=== PATIENT | female | born 1940 | race Caucasian/White ===

== ENCOUNTER 2017-05-20 15:30 | Emergency (ER) | payer MEDICARE, OTHER ==
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
== END 2017-05-20 16:43 | disposition home or self-care (01) ==
LOC: MW.ED 15:30
DX: S10.93XA Contusion of unspecified part of neck, initial encounter (principal); Z88.5 Allergy status to narcotic agent; Z91.018 Allergy to other foods; Z88.1 Allergy status to other antibiotic agents; V89.2XXA Person injured in unspecified motor-vehicle accident, traffic, initial encounter
CPT/HCPCS: 70450; 70450-26; 71046; 71046-26; 72125; 72125-26; 99284-25

== ENCOUNTER 2018-10-12 13:46 | Observation (INO) | payer MEDICARE, OTHER ==
--- NOTE | 2018-10-12 13:54 | EDM.PDOC ---
ED HPI GENERAL MEDICAL PROBLEM - General Chief Complaint: Respiratory Problem Stated Complaint: FLU Time Seen by Provider: 10/12/18 13:47 Source of Information: Reports: Patient History Limitations: Reports: No Limitations - History of Present Illness INITIAL COMMENTS - FREE TEXT/NARRATIVE: HISTORY AND PHYSICAL: History of present illness: Patient is a 78-year-old female presents to the ED today from [facility] for concern of pneumonia and elevated renal function testing. Patient states she had an appointment this morning and had lab work done and was called from the clinic to come to the ED. Patient states over the past couple weeks she's had an increasing cough and off-and-on fevers. Patient states she did not have a fever today but did have one yesterday of about 101. Patient states she's also felt more tired lately like she is out of energy. Patient denies any other symptoms or concerns. Patient has a history of hypertension, hyperlipidemia, and diabetes. Patient denies chills, chest pain, shortness of breath. Denies headache, neck stiff ness, change in vision, syncope, or near syncope. Denies nausea, vomiting , abdominal pain, diarrhea, constipation, or dysuria. Has not noted any blood in urine or stool. Patient has been eating and drinking appropriately. Review of systems: As per history of present illness and below otherwise all systems reviewed and negative. Past medical history: As per history of present illness and as reviewed below otherwise noncontributory. Surgical history: As per history of present illness and as reviewed below otherwise noncontributory. Social history: See social history for further information Family history: As per history of present illness and as reviewed below otherwise noncontributory. Physical exam: General: Patient is alert, oriented, and in no acute distress. Patient laying comfortably on exam table. HEENT: Atraumatic, normocephalic, pupils equal and reactive bilaterally, negative for conjunctival pallor or scleral icterus, mucous membranes moist, TMs normal bilaterally, throat clear, neck supple, nontender, trachea midline. No drooling or trismus noted. No meningeal signs. No hot potato voice noted. Lungs: Course crackles throughout the right lung field and wheezing of the left to auscultation, breath sounds equal bilaterally, chest nontender. Heart: S1S2, regular rate and rhythm without overt murmur Abdomen: Soft, nondistended, nontender. Negative for masses or hepatosplenomegaly. Negative for costovertebral tenderness. Pelvis: Stable nontender. Genitourinary: Deferred. Rectal: Deferred. Skin: Intact, warm, dry. No lesions or rashes noted. Extremities: Atraumatic, negative for cords or calf pain. Neurovascular unremarkable. Neuro: Awake, alert, oriented. Cranial nerves II through XII unremarkable. Cerebellum unremarkable. Motor and sensory unremarkable throughout. Exam nonfocal. Notes: Dr. Steinberg was consulted on patient and will admit to observation. Voices understanding and is agreeable to plan of care. Denies any further questions or concerns at this time. Diagnostics: CBC, CMP, UA, EKG, chest x-ray, lactate, blood cultures x 2 Therapeutics: Levofloxacin, NS Impression: Right middle lung pneumonia Elevated renal function tests Plan: 1. Admit to observation to Dr. Steinberg. Definitive disposition and diagnosis as appropriate pending reevaluation and review of above. - Related Data Allergies Allergy/AdvReac Type Severity Reaction Status Date / Time cephalexin [From Keflex] Allergy Rash Verified 10/12/18 13:52 codeine Allergy Respiratory Verified 10/12/18 13:52 Distress strawberry Allergy Rash Verified 10/12/18 13:52 Home Meds: Home Meds Gemfibrozil 600 mg PO BID 05/20/17 [History] Lisinopril 20 mg PO DAILY 05/20/17 [History] RX: LORazepam 1 mg PO ASDIRECTED 05/20/17 [History] RX: Pantoprazole [ProTONIX] 40 mg PO DAILY 05/20/17 [History] RX: Sertraline [Zoloft] 50 mg PO DAILY 05/20/17 [History] RX: atorvaSTATin [Lipitor] 10 mg PO DAILY 05/20/17 [History] SitaGLIPtin [Januvia] 50 mg PO DAILY 05/20/17 [History] Triamterene/Hydrochlorothiazid [Triamterene-HCTZ 37.5-25 MG] 1 tab PO DAILY [History] Past Medical History Cardiovascular History: Reports: Hypertension Other Musculoskeletal History: L shoulder and back pain chronic Psychiatric History: Reports: Anxiety, Depression Social & Family History - Family History Family Medical History: Noncontributory - Caffeine Use Caffeine Use: Reports: None ED ROS GENERAL - Review of Systems Review Of Systems: ROS reveals no pertinent complaints other than HPI. ED EXAM, GENERAL - Physical Exam Exam: See Below (See dictation) Course - Vital Signs Last Recorded V/S: Last Vital Signs Temp 35.3 C 10/12/18 13:54 Pulse 76 10/12/18 13:54 Resp 22 H 10/12/18 13:54 BP 111/34 L 10/12/18 13:54 Pulse Ox - Orders/Labs/Meds Orders: Active Orders 24 hr Category Date Time Status Admission Status [Patient Status] [ADT] Stat ADT 10/12/18 15:21 Ordered EKG Documentation Completion [RC] STAT Care 10/12/18 13:47 Active RT Aerosol Therapy [RC] ASDIRECTED Care 10/12/18 14:08 Active Chest 2V [CR] Stat Exams 10/12/18 13:47 Taken CULTURE BLOOD [BC] Stat Lab 10/12/18 14:00 Received CULTURE BLOOD [BC] Stat Lab 10/12/18 14:10 Received UA RFX ARLEY AND CULT IF INDIC [URIN] Stat Lab 10/12/18 13:47 Ordered Blood Culture x2 Reflex Set [OM.PC] Stat Oth 10/12/18 14:01 Ordered Labs: Laboratory Tests 10/12/18 10/12/18 10/12/18 Range/Units 14:00 14:00 14:00 WBC 16.45 H (4.0-11.0) K/uL RBC 3.55 L (4.30-5.90) M/uL Hgb 11.6 L (12.0-16.0) g/dL Hct 33.6 L (36.0-46.0) % MCV 94.6 (80.0-98.0) fL MCH 32.7 H (27.0-32.0) pg MCHC 34.5 (31.0-37.0) g/dL RDW Std Deviation 45.5 (28.0-62.0) fl RDW Coeff of Jacob 13 (11.0-15.0) % Plt Count 351 (150-400) K/uL MPV 10.00 (7.40-12.00) fL Neut % (Auto) 83.1 H (48.0-80.0) % Lymph % (Auto) 7.3 L (16.0-40.0) % [place] % (Auto) 9.4 (0.0-15.0) % Eos % (Auto) 0.1 (0.0-7.0) % Baso % (Auto) 0.1 (0.0-1.5) % Neut # (Auto) 13.7 H (1.4-5.7) K/uL Lymph # (Auto) 1.2 (0.6-2.4) K/uL [place] # (Auto) 1.5 H (0.0-0.8) K/uL Eos # (Auto) 0.0 (0.0-0.7) K/uL Baso # (Auto) 0.0 (0.0-0.1) K/uL Nucleated RBC % 0.0 /100WBC Nucleated RBCs # 0 K/uL Lactate 1.8 (0.20-2.00) mmol/L Sodium 137 (136-145) mmol/L Potassium 3.5 (3.5-5.1) mmol/L Chloride 99 (98-107) mmol/L Carbon Dioxide 21.2 (21.0-32.0) mmol/L BUN 56 H (7.0-18.0) mg/dL Creatinine 3.1 H (0.6-1.0) mg/dL Est Cr Clr Drug Dosing 14.23 mL/min Estimated GFR (MDRD) 14.6 ml/min Glucose 136 H (74-106) mg/dL Calcium 10.0 (8.5-10.1) mg/dL Total Bilirubin 0.5 (0.2-1.0) mg/dL AST 47 H (15-37) IU/L ALT 62 (14-63) IU/L Alkaline Phosphatase 109 (46-116) U/L Total Protein 8.9 H (6.4-8.2) g/dL Albumin 3.0 L (3.4-5.0) g/dL Globulin 5.9 H (2.6-4.0) g/dL Albumin/Globulin Ratio 0.5 L (0.9-1.6) Meds: Medications Discontinued Medications Generic Name Dose Route Start Last Admin Trade Name Freq PRN Reason Stop Dose Admin Albuterol/Ipratropium 3 ml 10/12/18 14:08 10/12/18 14:14 Duoneb 3.0-0.5 Mg/3 Ml NEB 10/12/18 14:09 3 ml ONETIME ONE Administration Sodium Chloride 1,000 mls @ 999 mls/hr 10/12/18 14:01 10/12/18 14:17 Normal Saline IV 10/12/18 15:01 999 mls/hr STAT ONE Administration Levofloxacin/Dextrose 500 mg/ 100 mls @ 100 mls/hr 10/12/18 14:06 10/12/18 14 :17 Premix IV 10/12/18 15:05 100 mls/hr ONETIME ONE Administration Departure - Departure Time of Disposition: 15:22 Disposition: Refer to Observation Clinical Impression: Community acquired pneumonia of right middle lobe of lung, Renal function test abnormal - Discharge Information - My Orders Last 24 Hours: My Active Orders 10/12/18 13:47 EKG Documentation Completion [RC] STAT Chest 2V [CR] Stat UA RFX ARLEY AND CULT IF INDIC [URIN] Stat 10/12/18 14:00 CULTURE BLOOD [BC] Stat 10/12/18 14:01 Blood Culture x2 Reflex Set [OM.PC] Stat 10/12/18 14:08 RT Aerosol Therapy [RC] ASDIRECTED 10/12/18 14:10 CULTURE BLOOD [BC] Stat 10/12/18 15:21 Admission Status [Patient Status] [ADT] Stat - Assessment/Plan Last 24 Hours: My Active Orders 10/12/18 13:47 EKG Documentation Completion [RC] STAT Chest 2V [CR] Stat UA RFX ARLEY AND CULT IF INDIC [URIN] Stat 10/12/18 14:00 CULTURE BLOOD [BC] Stat 10/12/18 14:01 Blood Culture x2 Reflex Set [OM.PC] Stat 10/12/18 14:08 RT Aerosol Therapy [RC] ASDIRECTED 10/12/18 14:10 CULTURE BLOOD [BC] Stat 10/12/18 15:21 Admission Status [Patient Status] [ADT] Stat
[2018-10-12] MEDS ORDERED: Sodium Chloride 0.9% 1,000 ML IV ONE (14:01)
[2018-10-12] MEDS ORDERED: Levofloxacin/Dextrose 5%-Water 500 MG in Premix Bag 1 BAG IV ONE (14:06)
[2018-10-12] MEDS ORDERED: Albuterol/Ipratropium 3.0-0.5 MG/3 ML Neb Soln NEB ONE (14:08)
[2018-10-12] MEDS ORDERED: Ondansetron 4 MG Tab.DIS PO PRN (15:48)
[2018-10-12] MEDS ORDERED: Acetaminophen 325 MG Tab PO PRN (15:48)
[2018-10-12] MEDS ORDERED: Ondansetron 4 MG/2 ML SDV IVPUSH PRN (15:48)
[2018-10-12] MEDS ORDERED: Albuterol 0.083% 2.5 MG/3 ML Neb Soln NEB PRN (15:48)
--- NOTE | 2018-10-12 16:16 | PCM.HP.2 ---
<Ronn Das - Last Filed: 10/12/18 16:20> H&P History of Present Illness - General Date of Service: 10/12/18 Admit Problem/Dx: Admission Diagnosis/Problem Admission Diagnosis/Problem Pneumonia - History of Present Illness Initial Comments - Free Text/Narative: 78 y/o female with history of type 2 diabetes who presented to the ER directly from her PCP's clinic. According to the patient, she had gone to see her PCP and were getting lab work done when she was told that she needed to come to the ER. She has been endorsing a productive cough for the past 1 week. some generalized weakness. Poor appetite due to not feeling well and some diarrhea for which she has been using Imodium. Endorses subjective fevers. No chills. No vomiting, abdominal pain, dysuria, blood in stool. No other sick contacts at home. She lives by herself and takes cares of herself. Can ambulate without assistance. Does not use supplemental oxygen at home. In the ER, chest xray showed a right middle lobe pneumonia and acute kidney injury. Receive bolus of NS x1 and one dose of levaquin. Currently on 2 L O2 satting in mid 90's. No acute distress. - Related Data Allergies/Adverse Reactions: Allergies Allergy/AdvReac Type Severity Reaction Status Date / Time cephalexin [From Keflex] Allergy Rash Verified 10/12/18 17:10 codeine Allergy Respiratory Verified 10/12/18 17:10 Distress strawberry Allergy Rash Verified 10/12/18 17:10 Home Medications: Home Meds Gemfibrozil 600 mg PO BID 05/20/17 [History] Lisinopril 20 mg PO DAILY 05/20/17 [History] Pantoprazole [ProTONIX] 40 mg PO DAILY 05/20/17 [History] Sertraline [Zoloft] 50 mg PO DAILY 05/20/17 [History] SitaGLIPtin [Januvia] 50 mg PO DAILY 05/20/17 [History] Triamterene/Hydrochlorothiazid [Triamterene-HCTZ 37.5-25 MG] 1 tab PO DAILY [History] atorvaSTATin [Lipitor] 10 mg PO BEDTIME 05/20/17 [History] Albuterol [Ventolin HFA] 1 puff INH QID PRN 10/12/18 [History] Blood-Glucose Control, Low [True Metrix] 1 each MC BID 10/12/18 [History] Estradiol [Estrace Vaginal] 1 applic VAG ASDIRECTED 10/12/18 [History] Lancets 1 each MC BID 10/12/18 [History] Past Medical History HEENT History: Reports: Impaired Vision Cardiovascular History: Reports: Hypertension Respiratory History: Reports: None Gastrointestinal History: Reports: None Genitourinary History: Reports: Renal Calculus TELEPHONE SERVICE REPRESENTATIVE History: Reports: None Musculoskeletal History: Reports: Arthritis, Other (See Below) Other Musculoskeletal History: L shoulder and back pain chronic Neurological History: Reports: None Psychiatric History: Reports: Anxiety, Depression Endocrine/Metabolic History: Reports: None Hematologic History: Reports: None Immunologic History: Reports: None Oncologic (Cancer) History: Reports: None Dermatologic History: Reports: None - Infectious Disease History Infectious Disease History: Reports: Hepatitis C, Measles, Mumps - Past Surgical History Head Surgeries/Procedures: Reports: None HEENT Surgical History: Reports: Tonsillectomy Cardiovascular Surgical History: Reports: None Respiratory Surgical History: Reports: None GI Surgical History: Reports: None Female Surgical History: Reports: Hysterectomy, Kidney stone extraction Endocrine Surgical History: Reports: None Neurological Surgical History: Reports: None Musculoskeletal Surgical History: Reports: None Oncologic Surgical History: Reports: None Dermatological Surgical History: Reports: None Social & Family History - Family History Family Medical History: Noncontributory - Tobacco Use Smoking Status *Q: Former Smoker Used Tobacco, but Quit: Yes Month/Year Tobacco Last Used: 2001 - Caffeine Use Caffeine Use: Reports: None - Recreational Drug Use Recreational Drug Use: No H&P Review of Systems - Review of Systems: Review Of Systems: ROS reveals no pertinent complaints other than HPI. Exam - Exam Exam: See Below - Vital Signs Vital Signs: Last Vital Signs Temp 35.9 C 10/12/18 15:41 Pulse 66 10/12/18 15:41 Resp 16 10/12/18 15:41 BP 112/46 L 10/12/18 15:41 Pulse Ox 97 10/12/18 15:41 Weight: 100.698 kg - Exam Quality Assessment: Supplemental Oxygen General: Alert, Oriented, Cooperative HEENT: Other (dry oral mucosa) Lungs: Other (lung sounds bilaterally with expiratory wheezing bilaterally. In addition, crackles on right lung field.) Cardiovascular: Regular Rate, Regular Rhythm GI/Abdominal Exam: Normal Bowel Sounds, Soft, Non-Tender, No Distention Extremities: Normal Inspection, No Pedal Edema Skin: Warm, Dry Neuro Extensive - Mental Status: Alert, Oriented x3 - Patient Data Lab Results Last 24 hrs: Laboratory Results - last 24 hr 10/12/18 10/12/18 10/12/18 Range/Units 14:00 14:00 14:00 WBC 16.45 H (4.0-11.0) K/uL RBC 3.55 L (4.30-5.90) M/uL Hgb 11.6 L (12.0-16.0) g/dL Hct 33.6 L (36.0-46.0) % MCV 94.6 (80.0-98.0) fL MCH 32.7 H (27.0-32.0) pg MCHC 34.5 (31.0-37.0) g/dL RDW Std Deviation 45.5 (28.0-62.0) fl RDW Coeff of Jacob 13 (11.0-15.0) % Plt Count 351 (150-400) K/uL MPV 10.00 (7.40-12.00) fL Neut % (Auto) 83.1 H (48.0-80.0) % Lymph % (Auto) 7.3 L (16.0-40.0) % [place] % (Auto) 9.4 (0.0-15.0) % Eos % (Auto) 0.1 (0.0-7.0) % Baso % (Auto) 0.1 (0.0-1.5) % Neut # (Auto) 13.7 H (1.4-5.7) K/uL Lymph # (Auto) 1.2 (0.6-2.4) K/uL [place] # (Auto) 1.5 H (0.0-0.8) K/uL Eos # (Auto) 0.0 (0.0-0.7) K/uL Baso # (Auto) 0.0 (0.0-0.1) K/uL Nucleated RBC % 0.0 /100WBC Nucleated RBCs # 0 K/uL Lactate 1.8 (0.20-2.00) mmol/L Sodium 137 (136-145) mmol/L Potassium 3.5 (3.5-5.1) mmol/L Chloride 99 (98-107) mmol/L Carbon Dioxide 21.2 (21.0-32.0) mmol/L BUN 56 H (7.0-18.0) mg/dL Creatinine 3.1 H (0.6-1.0) mg/dL Est Cr Clr Drug Dosing 14.23 mL/min Estimated GFR (MDRD) 14.6 ml/min Glucose 136 H (74-106) mg/dL Calcium 10.0 (8.5-10.1) mg/dL Total Bilirubin 0.5 (0.2-1.0) mg/dL AST 47 H (15-37) IU/L ALT 62 (14-63) IU/L Alkaline Phosphatase 109 (46-116) U/L Total Protein 8.9 H (6.4-8.2) g/dL Albumin 3.0 L (3.4-5.0) g/dL Globulin 5.9 H (2.6-4.0) g/dL Albumin/Globulin Ratio 0.5 L (0.9-1.6) Result Diagrams: 10/12/18 14:00 10/12/18 14:00 Problem List Initiated/Reviewed/Updated: Yes Orders Last 24hrs: Active Orders 24 hr Category Date Time Status Admission Status [Patient Status] [ADT] Stat ADT 10/12/18 15:21 Active Blood Glucose Check, Bedside [RC] WITHMEALSANDBED Care 10/12/18 15:48 Active EKG Documentation Completion [RC] STAT Care 10/12/18 13:47 Active Intake and Output [RC] QSHIFT Care 10/12/18 15:48 Active Oxygen Therapy [RC] PRN Care 10/12/18 15:48 Active Pulse Oximetry [RC] CONTINUOUS Care 10/12/18 15:48 Active RT Aerosol Therapy [RC] ASDIRECTED Care 10/12/18 14:08 Active RT Aerosol Therapy [RC] ASDIRECTED Care 10/12/18 15:50 Active Up ad Olga [RC] ASDIRECTED Care 10/12/18 15:48 Active VTE/DVT Education [RC] PER UNIT ROUTINE Care 10/12/18 15:48 Active Vital Signs [RC] Q4H Care 10/12/18 15:48 Active [employer] Diet [DIET] Diet 10/12/18 Dinner Active Chest 2V [CR] Stat Exams 10/12/18 13:47 Taken CULTURE BLOOD [BC] Stat Lab 10/12/18 14:00 Received CULTURE BLOOD [BC] Stat Lab 10/12/18 14:10 Received UA RFX ARLEY AND CULT IF INDIC [URIN] Stat Lab 10/12/18 13:47 Ordered Acetaminophen [Tylenol] Med 10/12/18 15:48 Active 650 mg PO Q4H PRN Albuterol [Proventil Neb Soln] Med 10/12/18 15:48 Active 2.5 mg NEB Q2H PRN Enoxaparin [Lovenox] Med 10/12/18 16:00 Active 40 mg SUBCUT Q24H Ondansetron [Zofran ODT] Med 10/12/18 15:48 Active 4 mg PO Q4H PRN Ondansetron [Zofran] Med 10/12/18 15:48 Active 4 mg IVPUSH Q4H PRN Blood Culture x2 Reflex Set [OM.PC] Stat Oth 10/12/18 14:01 Ordered Resuscitation Status Routine Resus Stat 10/12/18 15:48 Ordered Medication Orders Acetaminophen (Tylenol) 650 mg PO Q4H PRN PRN Reason: Pain (Mild 1-3)/fever Albuterol (Proventil Neb Soln) 2.5 mg NEB Q2H PRN PRN Reason: Shortness Of Breath/wheezing Enoxaparin Sodium (Lovenox) 40 mg SUBCUT Q24H LINDA Ondansetron HCl (Zofran Odt) 4 mg PO Q4H PRN PRN Reason: nausea, able to take PO Ondansetron HCl (Zofran) 4 mg IVPUSH Q4H PRN PRN Reason: Nausea Assessment/Plan Comment:: A: 1. Community acquired pneumonia 2. Leukocytosis due to above 3. Acute kidney injury 4. PMH diabetes type 2, dyslipidemia P: 1. Will treat for CAP with Levaquin IV Q48h for now due to her SAULO. Will make changes accordingly. Titrate O2 with goal >90%. Albuterol nebs PRN for wheezing. Will give maintenance fluids NS IV at 125 ml/hr for now and recheck kidney function tomorrow morning. Will order ISS for now. dispo: 1-2 days. <Cortez Steinberg - Last Filed: 10/12/18 17:41> H&P History of Present Illness - General Admit Problem/Dx: Admission Diagnosis/Problem Admission Diagnosis/Problem Pneumonia I have examined the patient independently of biomedical technician, Dr. Maria Teresa MD. I have discussed the case with him. I have reviewed and agree with the examination and plan as outlined by him. Please see orders. Exam - Vital Signs Vital Signs: Last Vital Signs Temp 35.9 C 10/12/18 15:41 Pulse 66 10/12/18 15:41 Resp 16 10/12/18 15:41 BP 112/46 L 10/12/18 15:41 Pulse Ox 97 10/12/18 15:41 - Patient Data Lab Results Last 24 hrs: Laboratory Results - last 24 hr 10/12/18 10/12/18 10/12/18 Range/Units 14:00 14:00 14:00 WBC 16.45 H (4.0-11.0) K/uL RBC 3.55 L (4.30-5.90) M/uL Hgb 11.6 L (12.0-16.0) g/dL Hct 33.6 L (36.0-46.0) % MCV 94.6 (80.0-98.0) fL MCH 32.7 H (27.0-32.0) pg MCHC 34.5 (31.0-37.0) g/dL RDW Std Deviation 45.5 (28.0-62.0) fl RDW Coeff of Jacob 13 (11.0-15.0) % Plt Count 351 (150-400) K/uL MPV 10.00 (7.40-12.00) fL Neut % (Auto) 83.1 H (48.0-80.0) % Lymph % (Auto) 7.3 L (16.0-40.0) % [place] % (Auto) 9.4 (0.0-15.0) % Eos % (Auto) 0.1 (0.0-7.0) % Baso % (Auto) 0.1 (0.0-1.5) % Neut # (Auto) 13.7 H (1.4-5.7) K/uL Lymph # (Auto) 1.2 (0.6-2.4) K/uL [place] # (Auto) 1.5 H (0.0-0.8) K/uL Eos # (Auto) 0.0 (0.0-0.7) K/uL Baso # (Auto) 0.0 (0.0-0.1) K/uL Nucleated RBC % 0.0 /100WBC Nucleated RBCs # 0 K/uL Lactate 1.8 (0.20-2.00) mmol/L Sodium 137 (136-145) mmol/L Potassium 3.5 (3.5-5.1) mmol/L Chloride 99 (98-107) mmol/L Carbon Dioxide 21.2 (21.0-32.0) mmol/L BUN 56 H (7.0-18.0) mg/dL Creatinine 3.1 H (0.6-1.0) mg/dL Est Cr Clr Drug Dosing 14.23 mL/min Estimated GFR (MDRD) 14.6 ml/min Glucose 136 H (74-106) mg/dL Hemoglobin A1c (4.5-6.2) % Calcium 10.0 (8.5-10.1) mg/dL Total Bilirubin 0.5 (0.2-1.0) mg/dL AST 47 H (15-37) IU/L ALT 62 (14-63) IU/L Alkaline Phosphatase 109 (46-116) U/L Total Protein 8.9 H (6.4-8.2) g/dL Albumin 3.0 L (3.4-5.0) g/dL Globulin 5.9 H (2.6-4.0) g/dL Albumin/Globulin Ratio 0.5 L (0.9-1.6) 10/12/18 Range/Units 14:00 WBC (4.0-11.0) K/uL RBC (4.30-5.90) M/uL Hgb (12.0-16.0) g/dL Hct (36.0-46.0) % MCV (80.0-98.0) fL MCH (27.0-32.0) pg MCHC (31.0-37.0) g/dL RDW Std Deviation (28.0-62.0) fl RDW Coeff of Jacob (11.0-15.0) % Plt Count (150-400) K/uL MPV (7.40-12.00) fL Neut % (Auto) (48.0-80.0) % Lymph % (Auto) (16.0-40.0) % [place] % (Auto) (0.0-15.0) % Eos % (Auto) (0.0-7.0) % Baso % (Auto) (0.0-1.5) % Neut # (Auto) (1.4-5.7) K/uL Lymph # (Auto) (0.6-2.4) K/uL [place] # (Auto) (0.0-0.8) K/uL Eos # (Auto) (0.0-0.7) K/uL Baso # (Auto) (0.0-0.1) K/uL Nucleated RBC % /100WBC Nucleated RBCs # K/uL Lactate (0.20-2.00) mmol/L Sodium (136-145) mmol/L Potassium (3.5-5.1) mmol/L Chloride (98-107) mmol/L Carbon Dioxide (21.0-32.0) mmol/L BUN (7.0-18.0) mg/dL Creatinine (0.6-1.0) mg/dL Est Cr Clr Drug Dosing mL/min Estimated GFR (MDRD) ml/min Glucose (74-106) mg/dL Hemoglobin A1c 6.1 (4.5-6.2) % Calcium (8.5-10.1) mg/dL Total Bilirubin (0.2-1.0) mg/dL AST (15-37) IU/L ALT (14-63) IU/L Alkaline Phosphatase (46-116) U/L Total Protein (6.4-8.2) g/dL Albumin (3.4-5.0) g/dL Globulin (2.6-4.0) g/dL Albumin/Globulin Ratio (0.9-1.6) Result Diagrams: 10/12/18 14:00 10/12/18 14:00 Orders Last 24hrs: Active Orders 24 hr Category Date Time Status Admission Status [Patient Status] [ADT] Stat ADT 10/12/18 15:21 Active Blood Glucose Check, Bedside [RC] WITHMEALSANDBED Care 10/12/18 15:48 Active Intake and Output [RC] Q12H Care 10/12/18 15:48 Active Oxygen Therapy [RC] PRN Care 10/12/18 15:48 Active Pulse Oximetry [RC] CONTINUOUS Care 10/12/18 15:48 Active RT Aerosol Therapy [RC] ASDIRECTED Care 10/12/18 14:08 Active RT Aerosol Therapy [RC] ASDIRECTED Care 10/12/18 15:50 Active Telemetry Monitoring [Cardiac Monitoring] [RC] Q8H Care 10/12/18 16:10 Active Up ad Olga [RC] ASDIRECTED Care 10/12/18 15:48 Active VTE/DVT Education [RC] PER UNIT ROUTINE Care 10/12/18 15:48 Active Vital Signs [RC] Q4H Care 10/12/18 15:48 Active [employer] Diet [DIET] Diet 10/12/18 Dinner Active Chest 2V [CR] Stat Exams 10/12/18 13:47 Taken CBC WITH AUTO DIFF [HEME] AM Lab 10/13/18 05:11 Ordered CBC WITH AUTO DIFF [HEME] AM Lab 10/14/18 05:11 Ordered COMPREHENSIVE METABOLIC PN,CMP [CHEM] AM Lab 10/13/18 05:11 Ordered COMPREHENSIVE METABOLIC PN,CMP [CHEM] AM Lab 10/14/18 05:11 Ordered CREATININE,URINE RAND [URCHEM] Stat Lab 10/12/18 16:24 Ordered CULTURE BLOOD [BC] Stat Lab 10/12/18 14:00 Received CULTURE BLOOD [BC] Stat Lab 10/12/18 14:10 Received CULTURE SPUTUM + SMEAR [RM] Urgent Lab 10/12/18 16:27 Ordered LEGIONELLA ANTIGEN [RM] Stat Lab 10/12/18 16:25 Ordered POTASSIUM,URINE RANDOM [URCHEM] Stat Lab 10/12/18 16:24 Ordered SODIUM,URINE RANDOM [URCHEM] Stat Lab 10/12/18 16:24 Ordered STREP PNEUMONIAE ANTIGEN [MREF] Stat Lab 10/12/18 16:25 Ordered UA RFX ARLEY AND CULT IF INDIC [URIN] Stat Lab 10/12/18 13:47 Ordered Acetaminophen [Tylenol] Med 10/12/18 15:48 Active 650 mg PO Q4H PRN Albuterol [Proventil Neb Soln] Med 10/12/18 15:48 Active 2.5 mg NEB Q2H PRN Enoxaparin [Lovenox] Med 10/12/18 16:00 Active 40 mg SUBCUT Q24H Insulin Aspart [NovoLOG] Med 10/12/18 17:00 Active See Protocol SUBCUT TIDAC Levofloxacin/Dextrose 5%-Water [Levaquin in D5W 750 MG/ Med 10/14/18 09:00 Active 150 ML] 750 mg Premix Bag 1 bag IV Q48H Ondansetron [Zofran ODT] Med 10/12/18 15:48 Active 4 mg PO Q4H PRN Ondansetron [Zofran] Med 10/12/18 15:48 Active 4 mg IVPUSH Q4H PRN Sodium Chloride 0.9% [Normal Saline] 1,000 ml Med 10/12/18 16:30 Active IV STAT Blood Culture x2 Reflex Set [OM.PC] Stat Oth 10/12/18 14:01 Ordered Resuscitation Status Routine Resus Stat 10/12/18 15:48 Ordered Medication Orders Acetaminophen (Tylenol) 650 mg PO Q4H PRN PRN Reason: Pain (Mild 1-3)/fever Albuterol (Proventil Neb Soln) 2.5 mg NEB Q2H PRN PRN Reason: Shortness Of Breath/wheezing Enoxaparin Sodium (Lovenox) 40 mg SUBCUT Q24H [facility] Last Admin: 10/12/18 17:25 Dose: 40 mg Sodium Chloride (Normal Saline) 1,000 mls @ 125 mls/hr IV STAT [facility] Last Admin: 10/12/18 17:40 Dose: 125 mls/hr Levofloxacin/Dextrose 750 mg/ (Premix) 150 mls @ 100 mls/hr IV Q48H LINDA Insulin Aspart (Novolog) 0 unit SUBCUT TIDAC [facility]; Protocol Last Admin: 10/12/18 17:32 Dose: Ondansetron HCl (Zofran Odt) 4 mg PO Q4H PRN PRN Reason: nausea, able to take PO Ondansetron HCl (Zofran) 4 mg IVPUSH Q4H PRN PRN Reason: Nausea
[2018-10-12 17:03] LABS: HEMOGLOBIN A1C 6.1 % (4.5-6.2)
[2018-10-12] MEDS: Enoxaparin 40 MG/0.4 ML Syringe SUBCUT SCH (17:25)
[2018-10-12] MEDS: Insulin Aspart 100 Units/ML 3 ML Pen SUBCUT SCH (17:32)
[2018-10-12] MEDS: Sodium Chloride 0.9% 1,000 ML IV SCH (17:40)
[2018-10-13] MEDS: Sodium Chloride 0.9% 1,000 ML IV SCH ×2 (01:47→10:07)
[2018-10-13] MEDS ORDERED: Albuterol 8 GM Inhaler INH PRN (08:59)
[2018-10-13] MEDS ORDERED: Potassium Chloride 20 MEQ Tab.ER PO ONE (08:59)
[2018-10-13] MEDS ORDERED: Gemfibrozil 600 MG Tab PO SCH (09:00)
[2018-10-13] MEDS ORDERED: ESTRADIOL VAG SCH (09:00)
[2018-10-13] MEDS: Insulin Aspart 100 Units/ML 3 ML Pen SUBCUT SCH ×3 (09:46→17:31)
[2018-10-13] MEDS: Hydrochlorothiazide/Triamterene 25-37.5 Tab PO SCH (10:04)
[2018-10-13] MEDS: Lisinopril 10 MG Tab PO SCH (10:04)
--- NOTE | 2018-10-13 10:04 | PCM.PN ---
<Garcia Neri M - Last Filed: 10/13/18 09:59> - General Info Date of Service: 10/13/18 Subjective Update: 78-year-old female admitted for RML pneumonia and acute kidney injury. Patient reports no fevers, chills, or shortness of breath overnight. Reports feeling better overall. She has been urinating and tolerating oral diet well. - Patient Data Vitals - Most Recent: Last Vital Signs Temp 96.6 F 10/13/18 07:50 Pulse 59 L 10/13/18 07:50 Resp 16 10/13/18 07:50 BP 136/60 10/13/18 07:50 Pulse Ox 95 10/13/18 07:50 Weight - Most Recent: 100.698 kg I&O - Last 24 Hours: Intake & Output 10/12/18 10/13/18 10/13/18 22:59 06:59 14:59 Intake Total 0 1975 Output Total 0 650 Balance 0 1325 Lab Results Last 24 Hours: Laboratory Results - last 24 hr 10/12/18 10/12/18 10/12/18 Range/Units 14:00 14:00 14:00 WBC 16.45 H (4.0-11.0) K/uL RBC 3.55 L (4.30-5.90) M/uL Hgb 11.6 L (12.0-16.0) g/dL Hct 33.6 L (36.0-46.0) % MCV 94.6 (80.0-98.0) fL MCH 32.7 H (27.0-32.0) pg MCHC 34.5 (31.0-37.0) g/dL RDW Std Deviation 45.5 (28.0-62.0) fl RDW Coeff of Jacob 13 (11.0-15.0) % Plt Count 351 (150-400) K/uL MPV 10.00 (7.40-12.00) fL Neut % (Auto) 83.1 H (48.0-80.0) % Lymph % (Auto) 7.3 L (16.0-40.0) % [place] % (Auto) 9.4 (0.0-15.0) % Eos % (Auto) 0.1 (0.0-7.0) % Baso % (Auto) 0.1 (0.0-1.5) % Neut # (Auto) 13.7 H (1.4-5.7) K/uL Lymph # (Auto) 1.2 (0.6-2.4) K/uL [place] # (Auto) 1.5 H (0.0-0.8) K/uL Eos # (Auto) 0.0 (0.0-0.7) K/uL Baso # (Auto) 0.0 (0.0-0.1) K/uL Nucleated RBC % 0.0 /100WBC Nucleated RBCs # 0 K/uL Lactate 1.8 (0.20-2.00) mmol/L Sodium 137 (136-145) mmol/L Potassium 3.5 (3.5-5.1) mmol/L Chloride 99 (98-107) mmol/L Carbon Dioxide 21.2 (21.0-32.0) mmol/L BUN 56 H (7.0-18.0) mg/dL Creatinine 3.1 H (0.6-1.0) mg/dL Est Cr Clr Drug Dosing 14.23 mL/min Estimated GFR (MDRD) 14.6 ml/min Glucose 136 H (74-106) mg/dL POC Glucose (60-110) mg/dL Hemoglobin A1c (4.5-6.2) % Calcium 10.0 (8.5-10.1) mg/dL Total Bilirubin 0.5 (0.2-1.0) mg/dL AST 47 H (15-37) IU/L ALT 62 (14-63) IU/L Alkaline Phosphatase 109 (46-116) U/L Total Protein 8.9 H (6.4-8.2) g/dL Albumin 3.0 L (3.4-5.0) g/dL Globulin 5.9 H (2.6-4.0) g/dL Albumin/Globulin Ratio 0.5 L (0.9-1.6) Urine Color Urine Appearance Urine pH (5.0-8.0) Ur Specific [place] (1.001-1.035) Urine Protein (NEGATIVE) mg/dL Urine Glucose (UA) (NEGATIVE) mg/dL Urine Ketones (NEGATIVE) mg/dL Urine Occult Blood (NEGATIVE) Urine Nitrite (NEGATIVE) Urine Bilirubin (NEGATIVE) Urine Urobilinogen (<2.0) EU/dL Ur Leukocyte Esterase (NEGATIVE) Urine RBC (0-2/HPF) Urine WBC (0-5/HPF) Ur Epithelial Cells (NONE-FEW) Amorphous Sediment (NEGATIVE) Urine Bacteria (NEGATIVE) Urine Mucus (NONE-MOD) Urine Yeast Ur Random Creatinine mg/dL Ur Random Sodium (40.0-220.0) mmol/L Ur Random Potassium mmol/L 10/12/18 10/12/18 10/12/18 Range/Units 14:00 17:29 20:19 WBC (4.0-11.0) K/uL RBC (4.30-5.90) M/uL Hgb (12.0-16.0) g/dL Hct (36.0-46.0) % MCV (80.0-98.0) fL MCH (27.0-32.0) pg MCHC (31.0-37.0) g/dL RDW Std Deviation (28.0-62.0) fl RDW Coeff of Jacob (11.0-15.0) % Plt Count (150-400) K/uL MPV (7.40-12.00) fL Neut % (Auto) (48.0-80.0) % Lymph % (Auto) (16.0-40.0) % [place] % (Auto) (0.0-15.0) % Eos % (Auto) (0.0-7.0) % Baso % (Auto) (0.0-1.5) % Neut # (Auto) (1.4-5.7) K/uL Lymph # (Auto) (0.6-2.4) K/uL [place] # (Auto) (0.0-0.8) K/uL Eos # (Auto) (0.0-0.7) K/uL Baso # (Auto) (0.0-0.1) K/uL Nucleated RBC % /100WBC Nucleated RBCs # K/uL Lactate (0.20-2.00) mmol/L Sodium (136-145) mmol/L Potassium (3.5-5.1) mmol/L Chloride (98-107) mmol/L Carbon Dioxide (21.0-32.0) mmol/L BUN (7.0-18.0) mg/dL Creatinine (0.6-1.0) mg/dL Est Cr Clr Drug Dosing mL/min Estimated GFR (MDRD) ml/min Glucose (74-106) mg/dL POC Glucose 98 109 (60-110) mg/dL Hemoglobin A1c 6.1 (4.5-6.2) % Calcium (8.5-10.1) mg/dL Total Bilirubin (0.2-1.0) mg/dL AST (15-37) IU/L ALT (14-63) IU/L Alkaline Phosphatase (46-116) U/L Total Protein (6.4-8.2) g/dL Albumin (3.4-5.0) g/dL Globulin (2.6-4.0) g/dL Albumin/Globulin Ratio (0.9-1.6) Urine Color Urine Appearance Urine pH (5.0-8.0) Ur Specific [place] (1.001-1.035) Urine Protein (NEGATIVE) mg/dL Urine Glucose (UA) (NEGATIVE) mg/dL Urine Ketones (NEGATIVE) mg/dL Urine Occult Blood (NEGATIVE) Urine Nitrite (NEGATIVE) Urine Bilirubin (NEGATIVE) Urine Urobilinogen (<2.0) EU/dL Ur Leukocyte Esterase (NEGATIVE) Urine RBC (0-2/HPF) Urine WBC (0-5/HPF) Ur Epithelial Cells (NONE-FEW) Amorphous Sediment (NEGATIVE) Urine Bacteria (NEGATIVE) Urine Mucus (NONE-MOD) Urine Yeast Ur Random Creatinine mg/dL Ur Random Sodium (40.0-220.0) mmol/L Ur Random Potassium mmol/L 10/12/18 10/12/18 10/13/18 Range/Units 22:38 22:38 06:00 WBC 9.89 (4.0-11.0) K/uL RBC 3.07 L (4.30-5.90) M/uL Hgb 9.9 L (12.0-16.0) g/dL Hct 29.2 L (36.0-46.0) % MCV 95.1 (80.0-98.0) fL MCH 32.2 H (27.0-32.0) pg MCHC 33.9 (31.0-37.0) g/dL RDW Std Deviation 45.1 (28.0-62.0) fl RDW Coeff of Jacob 13 (11.0-15.0) % Plt Count 279 (150-400) K/uL MPV 9.80 (7.40-12.00) fL Neut % (Auto) 76.0 (48.0-80.0) % Lymph % (Auto) 11.8 L (16.0-40.0) % [place] % (Auto) 10.8 (0.0-15.0) % Eos % (Auto) 1.2 (0.0-7.0) % Baso % (Auto) 0.2 (0.0-1.5) % Neut # (Auto) 7.5 H (1.4-5.7) K/uL Lymph # (Auto) 1.2 (0.6-2.4) K/uL [place] # (Auto) 1.1 H (0.0-0.8) K/uL Eos # (Auto) 0.1 (0.0-0.7) K/uL Baso # (Auto) 0.0 (0.0-0.1) K/uL Nucleated RBC % 0.0 /100WBC Nucleated RBCs # 0 K/uL Lactate (0.20-2.00) mmol/L Sodium (136-145) mmol/L Potassium (3.5-5.1) mmol/L Chloride (98-107) mmol/L Carbon Dioxide (21.0-32.0) mmol/L BUN (7.0-18.0) mg/dL Creatinine (0.6-1.0) mg/dL Est Cr Clr Drug Dosing mL/min Estimated GFR (MDRD) ml/min Glucose (74-106) mg/dL POC Glucose (60-110) mg/dL Hemoglobin A1c (4.5-6.2) % Calcium (8.5-10.1) mg/dL Total Bilirubin (0.2-1.0) mg/dL AST (15-37) IU/L ALT (14-63) IU/L Alkaline Phosphatase (46-116) U/L Total Protein (6.4-8.2) g/dL Albumin (3.4-5.0) g/dL Globulin (2.6-4.0) g/dL Albumin/Globulin Ratio (0.9-1.6) Urine Color YELLOW Urine Appearance CLOUDY Urine pH 6.0 (5.0-8.0) Ur Specific [place] 1.020 (1.001-1.035) Urine Protein 30 H (NEGATIVE) mg/dL Urine Glucose (UA) NEGATIVE (NEGATIVE) mg/dL Urine Ketones NEGATIVE (NEGATIVE) mg/dL Urine Occult Blood SMALL H (NEGATIVE) Urine Nitrite NEGATIVE (NEGATIVE) Urine Bilirubin NEGATIVE (NEGATIVE) Urine Urobilinogen 0.2 (<2.0) EU/dL Ur Leukocyte Esterase LARGE H (NEGATIVE) Urine RBC 0-2 (0-2/HPF) Urine WBC 7-9 (0-5/HPF) Ur Epithelial Cells FEW (NONE-FEW) Amorphous Sediment LIGHT (NEGATIVE) Urine Bacteria FEW (NEGATIVE) Urine Mucus LIGHT (NONE-MOD) Urine Yeast FEW Ur Random Creatinine 209.5 mg/dL Ur Random Sodium 69.0 (40.0-220.0) mmol/L Ur Random Potassium 15.9 mmol/L 10/13/18 10/13/18 Range/Units 06:00 06:01 WBC (4.0-11.0) K/uL RBC (4.30-5.90) M/uL Hgb (12.0-16.0) g/dL Hct (36.0-46.0) % MCV (80.0-98.0) fL MCH (27.0-32.0) pg MCHC (31.0-37.0) g/dL RDW Std Deviation (28.0-62.0) fl RDW Coeff of Jacob (11.0-15.0) % Plt Count (150-400) K/uL MPV (7.40-12.00) fL Neut % (Auto) (48.0-80.0) % Lymph % (Auto) (16.0-40.0) % [place] % (Auto) (0.0-15.0) % Eos % (Auto) (0.0-7.0) % Baso % (Auto) (0.0-1.5) % Neut # (Auto) (1.4-5.7) K/uL Lymph # (Auto) (0.6-2.4) K/uL [place] # (Auto) (0.0-0.8) K/uL Eos # (Auto) (0.0-0.7) K/uL Baso # (Auto) (0.0-0.1) K/uL Nucleated RBC % /100WBC Nucleated RBCs # K/uL Lactate (0.20-2.00) mmol/L Sodium 139 (136-145) mmol/L Potassium 3.4 L (3.5-5.1) mmol/L Chloride 103 (98-107) mmol/L Carbon Dioxide 22.0 (21.0-32.0) mmol/L BUN 53 H (7.0-18.0) mg/dL Creatinine 2.2 H (0.6-1.0) mg/dL Est Cr Clr Drug Dosing 20.05 mL/min Estimated GFR (MDRD) 21.6 ml/min Glucose 103 (74-106) mg/dL POC Glucose 97 (60-110) mg/dL Hemoglobin A1c (4.5-6.2) % Calcium 9.0 (8.5-10.1) mg/dL Total Bilirubin 0.5 (0.2-1.0) mg/dL AST 38 H (15-37) IU/L ALT 54 (14-63) IU/L Alkaline Phosphatase 90 (46-116) U/L Total Protein 7.3 (6.4-8.2) g/dL Albumin 2.3 L (3.4-5.0) g/dL Globulin 5.0 H (2.6-4.0) g/dL Albumin/Globulin Ratio 0.5 L (0.9-1.6) Urine Color Urine Appearance Urine pH (5.0-8.0) Ur Specific [place] (1.001-1.035) Urine Protein (NEGATIVE) mg/dL Urine Glucose (UA) (NEGATIVE) mg/dL Urine Ketones (NEGATIVE) mg/dL Urine Occult Blood (NEGATIVE) Urine Nitrite (NEGATIVE) Urine Bilirubin (NEGATIVE) Urine Urobilinogen (<2.0) EU/dL Ur Leukocyte Esterase (NEGATIVE) Urine RBC (0-2/HPF) Urine WBC (0-5/HPF) Ur Epithelial Cells (NONE-FEW) Amorphous Sediment (NEGATIVE) Urine Bacteria (NEGATIVE) Urine Mucus (NONE-MOD) Urine Yeast Ur Random Creatinine mg/dL Ur Random Sodium (40.0-220.0) mmol/L Ur Random Potassium mmol/L Evan Results Last 24 Hours: Microbiology 10/12/18 22:38 Streptococcus pneumoniae Ag Screen - Final Urine 10/12/18 22:38 Legionella Antigen - Final Urine, Clean Catch Med Orders - Current: Current Medications Acetaminophen (Tylenol) 650 mg PO Q4H PRN PRN Reason: Pain (Mild 1-3)/fever Albuterol (Proventil Neb Soln) 2.5 mg NEB Q2H PRN PRN Reason: Shortness Of Breath/wheezing Albuterol (Ventolin Hfa) 0 gm INH QID PRN PRN Reason: Wheezing Atorvastatin Calcium (Lipitor) 10 mg PO BEDTIME [facility] Enoxaparin Sodium (Lovenox) 40 mg SUBCUT Q24H [facility] Last Admin: 10/12/18 17:25 Dose: 40 mg Gemfibrozil (Lopid) 600 mg PO BID [facility] Sodium Chloride (Normal Saline) 1,000 mls @ 100 mls/hr IV STAT [facility] Last Admin: 10/13/18 01:47 Dose: 125 mls/hr Levofloxacin/Dextrose 750 mg/ (Premix) 150 mls @ 100 mls/hr IV Q48H [facility] Insulin Aspart (Novolog) 0 unit SUBCUT TIDAC [facility]; Protocol Last Admin: 10/13/18 09:46 Dose: Not Given Lisinopril (Prinivil) 20 mg PO DAILY [facility] Ondansetron HCl (Zofran Odt) 4 mg PO Q4H PRN PRN Reason: nausea, able to take PO Ondansetron HCl (Zofran) 4 mg IVPUSH Q4H PRN PRN Reason: Nausea Pantoprazole Sodium (Protonix) 40 mg PO DAILY [facility] Estradiol [Estrace (Vaginal]) 1 each VAG ASDIRECTED [facility] Sertraline HCl (Zoloft) 50 mg PO DAILY [facility] Triamterene/HCTZ (Maxzide 25-37.5 Mg) 1 each PO DAILY [facility] Discontinued Medications Albuterol/Ipratropium (Duoneb 3.0-0.5 Mg/3 Ml) 3 ml NEB ONETIME ONE Stop: 10/12/18 14:09 Last Admin: 10/12/18 14:14 Dose: 3 ml Sodium Chloride (Normal Saline) 1,000 mls @ 999 mls/hr IV STAT ONE Stop: 10/12/18 15:01 Last Admin: 10/12/18 14:17 Dose: 999 mls/hr Levofloxacin/Dextrose 500 mg/ (Premix) 100 mls @ 100 mls/hr IV ONETIME ONE Stop: 10/12/18 15:05 Last Admin: 10/12/18 14:17 Dose: 100 mls/hr Potassium Chloride (Klor-Con M20) 40 meq PO ONETIME ONE Stop: 10/13/18 09:00 - Exam General: Alert, Oriented, Cooperative, No Acute Distress Lungs: Normal Respiratory Effort, Other (expiratory rhonchi bilaterally) Cardiovascular: Regular Rate, Regular Rhythm GI/Abdominal Exam: Normal Bowel Sounds, Soft, Non-Tender, No Distention Extremities: Normal Inspection, No Pedal Edema - Problem List & Annotations (1) SAULO (acute kidney injury) SNOMED Code(s): 22330048, 84281335 Code(s): N17.9 - ACUTE KIDNEY FAILURE, UNSPECIFIED Status: Acute Current Visit: Yes (2) Community acquired pneumonia of right middle lobe of lung SNOMED Code(s): 140878824 Code(s): J18.1 - LOBAR PNEUMONIA, UNSPECIFIED ORGANISM Status: Acute Current Visit: Yes - Problem List Review Problem List Initiated/Reviewed/Updated: Yes - My Orders Last 24 Hours: My Active Orders 10/12/18 18:39 Intake and Output Strict [RC] ASDIRECTED 10/13/18 08:59 Albuterol [Ventolin HFA] 0 gm INH QID PRN 10/13/18 09:00 Gemfibrozil [Lopid] 600 mg PO BID HCTZ/Triamterene [Maxzide 25-37.5 MG] 1 each PO DAILY Lisinopril [Prinivil] 20 mg PO DAILY Pantoprazole [ProTONIX] 40 mg PO DAILY Patient's Own Medication [Ptom] 1 each VAG ASDIRECTED Sertraline [Zoloft] 50 mg PO DAILY 10/13/18 21:00 atorvaSTATin [Lipitor] 10 mg PO BEDTIME - Plan Plan:: Assessment: 1. Community acquired pneumonia. 2. Leukocytosis, resolved. 3. Acute kidney injury, improving. 4. Hypokalemia, mild. 4. Past medical history of type 2 diabetes mellitus, HTN and hyperlipidemia. Plan: 1. For community acquired pneumonia, will continue IV levaquin q48h because of SAULO. Patient has been weaned off of oxygen and is now on room air. Continue albuterol neb PRN wheezing. Continue incentive spirometry. 2. For acute kidney injury, will keep patient on IV maintenance fluids of 100 cc /hr. She has been urinating and her SAULO has been improving. 3. For hypokalemia, will replete with PO KCl 40 mEq. 4. For PMH will continue with home medications. <Cortez Steinberg - Last Filed: 10/13/18 11:19> - General Info Subjective Update: I have examined the patient independently of director medical writing, Dr. Halle MD. I have discussed the case with him. I have reviewed and agree with the examination and plan as outlined by him. Please see orders. - Patient Data Vitals - Most Recent: Last Vital Signs Temp 35.9 C 10/13/18 07:50 Pulse 59 L 10/13/18 07:50 Resp 16 10/13/18 07:50 BP 136/60 10/13/18 10:04 Pulse Ox 95 10/13/18 07:50 I&O - Last 24 Hours: Intake & Output 10/12/18 10/13/18 10/13/18 22:59 06:59 14:59 Intake Total 0 1975 360 Output Total 0 650 Balance 0 1325 360 Lab Results Last 24 Hours: Laboratory Results - last 24 hr 10/12/18 10/12/18 10/12/18 Range/Units 14:00 14:00 14:00 WBC 16.45 H (4.0-11.0) K/uL RBC 3.55 L (4.30-5.90) M/uL Hgb 11.6 L (12.0-16.0) g/dL Hct 33.6 L (36.0-46.0) % MCV 94.6 (80.0-98.0) fL MCH 32.7 H (27.0-32.0) pg MCHC 34.5 (31.0-37.0) g/dL RDW Std Deviation 45.5 (28.0-62.0) fl RDW Coeff of Jacob 13 (11.0-15.0) % Plt Count 351 (150-400) K/uL MPV 10.00 (7.40-12.00) fL Neut % (Auto) 83.1 H (48.0-80.0) % Lymph % (Auto) 7.3 L (16.0-40.0) % [place] % (Auto) 9.4 (0.0-15.0) % Eos % (Auto) 0.1 (0.0-7.0) % Baso % (Auto) 0.1 (0.0-1.5) % Neut # (Auto) 13.7 H (1.4-5.7) K/uL Lymph # (Auto) 1.2 (0.6-2.4) K/uL [place] # (Auto) 1.5 H (0.0-0.8) K/uL Eos # (Auto) 0.0 (0.0-0.7) K/uL Baso # (Auto) 0.0 (0.0-0.1) K/uL Nucleated RBC % 0.0 /100WBC Nucleated RBCs # 0 K/uL Lactate 1.8 (0.20-2.00) mmol/L Sodium 137 (136-145) mmol/L Potassium 3.5 (3.5-5.1) mmol/L Chloride 99 (98-107) mmol/L Carbon Dioxide 21.2 (21.0-32.0) mmol/L BUN 56 H (7.0-18.0) mg/dL Creatinine 3.1 H (0.6-1.0) mg/dL Est Cr Clr Drug Dosing 14.23 mL/min Estimated GFR (MDRD) 14.6 ml/min Glucose 136 H (74-106) mg/dL POC Glucose (60-110) mg/dL Hemoglobin A1c (4.5-6.2) % Calcium 10.0 (8.5-10.1) mg/dL Total Bilirubin 0.5 (0.2-1.0) mg/dL AST 47 H (15-37) IU/L ALT 62 (14-63) IU/L Alkaline Phosphatase 109 (46-116) U/L Total Protein 8.9 H (6.4-8.2) g/dL Albumin 3.0 L (3.4-5.0) g/dL Globulin 5.9 H (2.6-4.0) g/dL Albumin/Globulin Ratio 0.5 L (0.9-1.6) Urine Color Urine Appearance Urine pH (5.0-8.0) Ur Specific [place] (1.001-1.035) Urine Protein (NEGATIVE) mg/dL Urine Glucose (UA) (NEGATIVE) mg/dL Urine Ketones (NEGATIVE) mg/dL Urine Occult Blood (NEGATIVE) Urine Nitrite (NEGATIVE) Urine Bilirubin (NEGATIVE) Urine Urobilinogen (<2.0) EU/dL Ur Leukocyte Esterase (NEGATIVE) Urine RBC (0-2/HPF) Urine WBC (0-5/HPF) Ur Epithelial Cells (NONE-FEW) Amorphous Sediment (NEGATIVE) Urine Bacteria (NEGATIVE) Urine Mucus (NONE-MOD) Urine Yeast Ur Random Creatinine mg/dL Ur Random Sodium (40.0-220.0) mmol/L Ur Random Potassium mmol/L 10/12/18 10/12/18 10/12/18 Range/Units 14:00 17:29 20:19 WBC (4.0-11.0) K/uL RBC (4.30-5.90) M/uL Hgb (12.0-16.0) g/dL Hct (36.0-46.0) % MCV (80.0-98.0) fL MCH (27.0-32.0) pg MCHC (31.0-37.0) g/dL RDW Std Deviation (28.0-62.0) fl RDW Coeff of Jacob (11.0-15.0) % Plt Count (150-400) K/uL MPV (7.40-12.00) fL Neut % (Auto) (48.0-80.0) % Lymph % (Auto) (16.0-40.0) % [place] % (Auto) (0.0-15.0) % Eos % (Auto) (0.0-7.0) % Baso % (Auto) (0.0-1.5) % Neut # (Auto) (1.4-5.7) K/uL Lymph # (Auto) (0.6-2.4) K/uL [place] # (Auto) (0.0-0.8) K/uL Eos # (Auto) (0.0-0.7) K/uL Baso # (Auto) (0.0-0.1) K/uL Nucleated RBC % /100WBC Nucleated RBCs # K/uL Lactate (0.20-2.00) mmol/L Sodium (136-145) mmol/L Potassium (3.5-5.1) mmol/L Chloride (98-107) mmol/L Carbon Dioxide (21.0-32.0) mmol/L BUN (7.0-18.0) mg/dL Creatinine (0.6-1.0) mg/dL Est Cr Clr Drug Dosing mL/min Estimated GFR (MDRD) ml/min Glucose (74-106) mg/dL POC Glucose 98 109 (60-110) mg/dL Hemoglobin A1c 6.1 (4.5-6.2) % Calcium (8.5-10.1) mg/dL Total Bilirubin (0.2-1.0) mg/dL AST (15-37) IU/L ALT (14-63) IU/L Alkaline Phosphatase (46-116) U/L Total Protein (6.4-8.2) g/dL Albumin (3.4-5.0) g/dL Globulin (2.6-4.0) g/dL Albumin/Globulin Ratio (0.9-1.6) Urine Color Urine Appearance Urine pH (5.0-8.0) Ur Specific [place] (1.001-1.035) Urine Protein (NEGATIVE) mg/dL Urine Glucose (UA) (NEGATIVE) mg/dL Urine Ketones (NEGATIVE) mg/dL Urine Occult Blood (NEGATIVE) Urine Nitrite (NEGATIVE) Urine Bilirubin (NEGATIVE) Urine Urobilinogen (<2.0) EU/dL Ur Leukocyte Esterase (NEGATIVE) Urine RBC (0-2/HPF) Urine WBC (0-5/HPF) Ur Epithelial Cells (NONE-FEW) Amorphous Sediment (NEGATIVE) Urine Bacteria (NEGATIVE) Urine Mucus (NONE-MOD) Urine Yeast Ur Random Creatinine mg/dL Ur Random Sodium (40.0-220.0) mmol/L Ur Random Potassium mmol/L 10/12/18 10/12/18 10/13/18 Range/Units 22:38 22:38 06:00 WBC 9.89 (4.0-11.0) K/uL RBC 3.07 L (4.30-5.90) M/uL Hgb 9.9 L (12.0-16.0) g/dL Hct 29.2 L (36.0-46.0) % MCV 95.1 (80.0-98.0) fL MCH 32.2 H (27.0-32.0) pg MCHC 33.9 (31.0-37.0) g/dL RDW Std Deviation 45.1 (28.0-62.0) fl RDW Coeff of Jacob 13 (11.0-15.0) % Plt Count 279 (150-400) K/uL MPV 9.80 (7.40-12.00) fL Neut % (Auto) 76.0 (48.0-80.0) % Lymph % (Auto) 11.8 L (16.0-40.0) % [place] % (Auto) 10.8 (0.0-15.0) % Eos % (Auto) 1.2 (0.0-7.0) % Baso % (Auto) 0.2 (0.0-1.5) % Neut # (Auto) 7.5 H (1.4-5.7) K/uL Lymph # (Auto) 1.2 (0.6-2.4) K/uL [place] # (Auto) 1.1 H (0.0-0.8) K/uL Eos # (Auto) 0.1 (0.0-0.7) K/uL Baso # (Auto) 0.0 (0.0-0.1) K/uL Nucleated RBC % 0.0 /100WBC Nucleated RBCs # 0 K/uL Lactate (0.20-2.00) mmol/L Sodium (136-145) mmol/L Potassium (3.5-5.1) mmol/L Chloride (98-107) mmol/L Carbon Dioxide (21.0-32.0) mmol/L BUN (7.0-18.0) mg/dL Creatinine (0.6-1.0) mg/dL Est Cr Clr Drug Dosing mL/min Estimated GFR (MDRD) ml/min Glucose (74-106) mg/dL POC Glucose (60-110) mg/dL Hemoglobin A1c (4.5-6.2) % Calcium (8.5-10.1) mg/dL Total Bilirubin (0.2-1.0) mg/dL AST (15-37) IU/L ALT (14-63) IU/L Alkaline Phosphatase (46-116) U/L Total Protein (6.4-8.2) g/dL Albumin (3.4-5.0) g/dL Globulin (2.6-4.0) g/dL Albumin/Globulin Ratio (0.9-1.6) Urine Color YELLOW Urine Appearance CLOUDY Urine pH 6.0 (5.0-8.0) Ur Specific [place] 1.020 (1.001-1.035) Urine Protein 30 H (NEGATIVE) mg/dL Urine Glucose (UA) NEGATIVE (NEGATIVE) mg/dL Urine Ketones NEGATIVE (NEGATIVE) mg/dL Urine Occult Blood SMALL H (NEGATIVE) Urine Nitrite NEGATIVE (NEGATIVE) Urine Bilirubin NEGATIVE (NEGATIVE) Urine Urobilinogen 0.2 (<2.0) EU/dL Ur Leukocyte Esterase LARGE H (NEGATIVE) Urine RBC 0-2 (0-2/HPF) Urine WBC 7-9 (0-5/HPF) Ur Epithelial Cells FEW (NONE-FEW) Amorphous Sediment LIGHT (NEGATIVE) Urine Bacteria FEW (NEGATIVE) Urine Mucus LIGHT (NONE-MOD) Urine Yeast FEW Ur Random Creatinine 209.5 mg/dL Ur Random Sodium 69.0 (40.0-220.0) mmol/L Ur Random Potassium 15.9 mmol/L 10/13/18 10/13/18 Range/Units 06:00 06:01 WBC (4.0-11.0) K/uL RBC (4.30-5.90) M/uL Hgb (12.0-16.0) g/dL Hct (36.0-46.0) % MCV (80.0-98.0) fL MCH (27.0-32.0) pg MCHC (31.0-37.0) g/dL RDW Std Deviation (28.0-62.0) fl RDW Coeff of Jacob (11.0-15.0) % Plt Count (150-400) K/uL MPV (7.40-12.00) fL Neut % (Auto) (48.0-80.0) % Lymph % (Auto) (16.0-40.0) % [place] % (Auto) (0.0-15.0) % Eos % (Auto) (0.0-7.0) % Baso % (Auto) (0.0-1.5) % Neut # (Auto) (1.4-5.7) K/uL Lymph # (Auto) (0.6-2.4) K/uL [place] # (Auto) (0.0-0.8) K/uL Eos # (Auto) (0.0-0.7) K/uL Baso # (Auto) (0.0-0.1) K/uL Nucleated RBC % /100WBC Nucleated RBCs # K/uL Lactate (0.20-2.00) mmol/L Sodium 139 (136-145) mmol/L Potassium 3.4 L (3.5-5.1) mmol/L Chloride 103 (98-107) mmol/L Carbon Dioxide 22.0 (21.0-32.0) mmol/L BUN 53 H (7.0-18.0) mg/dL Creatinine 2.2 H (0.6-1.0) mg/dL Est Cr Clr Drug Dosing 20.05 mL/min Estimated GFR (MDRD) 21.6 ml/min Glucose 103 (74-106) mg/dL POC Glucose 97 (60-110) mg/dL Hemoglobin A1c (4.5-6.2) % Calcium 9.0 (8.5-10.1) mg/dL Total Bilirubin 0.5 (0.2-1.0) mg/dL AST 38 H (15-37) IU/L ALT 54 (14-63) IU/L Alkaline Phosphatase 90 (46-116) U/L Total Protein 7.3 (6.4-8.2) g/dL Albumin 2.3 L (3.4-5.0) g/dL Globulin 5.0 H (2.6-4.0) g/dL Albumin/Globulin Ratio 0.5 L (0.9-1.6) Urine Color Urine Appearance Urine pH (5.0-8.0) Ur Specific [place] (1.001-1.035) Urine Protein (NEGATIVE) mg/dL Urine Glucose (UA) (NEGATIVE) mg/dL Urine Ketones (NEGATIVE) mg/dL Urine Occult Blood (NEGATIVE) Urine Nitrite (NEGATIVE) Urine Bilirubin (NEGATIVE) Urine Urobilinogen (<2.0) EU/dL Ur Leukocyte Esterase (NEGATIVE) Urine RBC (0-2/HPF) Urine WBC (0-5/HPF) Ur Epithelial Cells (NONE-FEW) Amorphous Sediment (NEGATIVE) Urine Bacteria (NEGATIVE) Urine Mucus (NONE-MOD) Urine Yeast Ur Random Creatinine mg/dL Ur Random Sodium (40.0-220.0) mmol/L Ur Random Potassium mmol/L Evan Results Last 24 Hours: Microbiology 10/12/18 22:38 Streptococcus pneumoniae Ag Screen - Final Urine 10/12/18 22:38 Legionella Antigen - Final Urine, Clean Catch Med Orders - Current: Current Medications Acetaminophen (Tylenol) 650 mg PO Q4H PRN PRN Reason: Pain (Mild 1-3)/fever Albuterol (Proventil Neb Soln) 2.5 mg NEB Q2H PRN PRN Reason: Shortness Of Breath/wheezing Albuterol (Ventolin Hfa) 0 gm INH QID PRN PRN Reason: Wheezing Atorvastatin Calcium (Lipitor) 10 mg PO BEDTIME [facility] Enoxaparin Sodium (Lovenox) 40 mg SUBCUT Q24H [facility] Last Admin: 10/12/18 17:25 Dose: 40 mg Gemfibrozil (Lopid) 600 mg PO BID [facility] Last Admin: 10/13/18 10:07 Dose: Not Given Sodium Chloride (Normal Saline) 1,000 mls @ 100 mls/hr IV STAT [facility] Last Admin: 10/13/18 10:07 Dose: 125 mls/hr Levofloxacin/Dextrose 750 mg/ (Premix) 150 mls @ 100 mls/hr IV Q48H [facility] Insulin Aspart (Novolog) 0 unit SUBCUT TIDAC [facility]; Protocol Last Admin: 10/13/18 09:46 Dose: Not Given Lisinopril (Prinivil) 20 mg PO DAILY [facility] Last Admin: 10/13/18 10:04 Dose: 20 mg Ondansetron HCl (Zofran Odt) 4 mg PO Q4H PRN PRN Reason: nausea, able to take PO Ondansetron HCl (Zofran) 4 mg IVPUSH Q4H PRN PRN Reason: Nausea Pantoprazole Sodium (Protonix) 40 mg PO DAILY [facility] Last Admin: 10/13/18 10:05 Dose: 40 mg Estradiol [Estrace (Vaginal]) 1 each VAG ASDIRECTED [facility] Sertraline HCl (Zoloft) 50 mg PO DAILY [facility] Last Admin: 10/13/18 10:05 Dose: 50 mg Triamterene/HCTZ (Maxzide 25-37.5 Mg) 1 each PO DAILY [facility] Last Admin: 10/13/18 10:04 Dose: 1 each Discontinued Medications Albuterol/Ipratropium (Duoneb 3.0-0.5 Mg/3 Ml) 3 ml NEB ONETIME ONE Stop: 10/12/18 14:09 Last Admin: 10/12/18 14:14 Dose: 3 ml Sodium Chloride (Normal Saline) 1,000 mls @ 999 mls/hr IV STAT ONE Stop: 10/12/18 15:01 Last Admin: 10/12/18 14:17 Dose: 999 mls/hr Levofloxacin/Dextrose 500 mg/ (Premix) 100 mls @ 100 mls/hr IV ONETIME ONE Stop: 10/12/18 15:05 Last Admin: 10/12/18 14:17 Dose: 100 mls/hr Potassium Chloride (Klor-Con M20) 40 meq PO ONETIME ONE Stop: 10/13/18 09:00 Last Admin: 10/13/18 10:06 Dose: 40 meq - My Orders Last 24 Hours: My Active Orders 10/12/18 Dinner [employer] Diet [DIET]
[2018-10-13] MEDS: Pantoprazole 40 MG Tab.CR PO SCH (10:05)
[2018-10-13] MEDS: Sertraline 50 MG Tab PO SCH (10:05)
[2018-10-13] MEDS: Enoxaparin 40 MG/0.4 ML Syringe SUBCUT SCH (16:22)
[2018-10-13] MEDS: atorvaSTATin 10 MG Tab PO SCH (20:48)
[2018-10-14] MEDS: Insulin Aspart 100 Units/ML 3 ML Pen SUBCUT SCH ×3 (07:47→17:18)
[2018-10-14] MEDS: Pantoprazole 40 MG Tab.CR PO SCH (08:26)
[2018-10-14] MEDS: Sertraline 50 MG Tab PO SCH (08:26)
[2018-10-14] MEDS: Lisinopril 10 MG Tab PO SCH (08:26)
[2018-10-14] MEDS: Hydrochlorothiazide/Triamterene 25-37.5 Tab PO SCH (08:26)
[2018-10-14] MEDS ORDERED: Levofloxacin/Dextrose 5%-Water 750 MG in Premix Bag 1 BAG IV SCH (09:00)
--- NOTE | 2018-10-14 10:11 | PCM.PN ---
<Ronn Das - Last Filed: 10/14/18 10:07> - General Info Date of Service: 10/14/18 Subjective Update: no acute events overnight. patient feeling better. eating and drinking fluids. - Patient Data Vitals - Most Recent: Last Vital Signs Temp 36.6 C 10/14/18 07:53 Pulse 55 L 10/14/18 07:53 Resp 16 10/14/18 07:53 BP 132/63 10/14/18 08:26 Pulse Ox 95 10/14/18 07:53 Weight - Most Recent: 100.698 kg I&O - Last 24 Hours: Intake & Output 10/13/18 10/14/18 10/14/18 22:59 06:59 14:59 Intake Total 2200 300 150 Output Total 1550 2200 Balance 650 -1900 150 Lab Results Last 24 Hours: Laboratory Results - last 24 hr 10/13/18 10/13/18 10/13/18 Range/Units 12:05 17:27 21:34 WBC (4.0-11.0) K/uL RBC (4.30-5.90) M/uL Hgb (12.0-16.0) g/dL Hct (36.0-46.0) % MCV (80.0-98.0) fL MCH (27.0-32.0) pg MCHC (31.0-37.0) g/dL RDW Std Deviation (28.0-62.0) fl RDW Coeff of Jacob (11.0-15.0) % Plt Count (150-400) K/uL MPV (7.40-12.00) fL Neut % (Auto) (48.0-80.0) % Lymph % (Auto) (16.0-40.0) % [place] % (Auto) (0.0-15.0) % Eos % (Auto) (0.0-7.0) % Baso % (Auto) (0.0-1.5) % Neut # (Auto) (1.4-5.7) K/uL Lymph # (Auto) (0.6-2.4) K/uL [place] # (Auto) (0.0-0.8) K/uL Eos # (Auto) (0.0-0.7) K/uL Baso # (Auto) (0.0-0.1) K/uL Nucleated RBC % /100WBC Nucleated RBCs # K/uL Sodium (136-145) mmol/L Potassium (3.5-5.1) mmol/L Chloride (98-107) mmol/L Carbon Dioxide (21.0-32.0) mmol/L BUN (7.0-18.0) mg/dL Creatinine (0.6-1.0) mg/dL Est Cr Clr Drug Dosing mL/min Estimated GFR (MDRD) ml/min Glucose (74-106) mg/dL POC Glucose 96 101 95 (60-110) mg/dL Calcium (8.5-10.1) mg/dL Total Bilirubin (0.2-1.0) mg/dL AST (15-37) IU/L ALT (14-63) IU/L Alkaline Phosphatase (46-116) U/L Total Protein (6.4-8.2) g/dL Albumin (3.4-5.0) g/dL Globulin (2.6-4.0) g/dL Albumin/Globulin Ratio (0.9-1.6) 10/14/18 10/14/18 10/14/18 Range/Units 05:58 05:58 06:26 WBC 8.89 (4.0-11.0) K/uL RBC 3.25 L (4.30-5.90) M/uL Hgb 10.4 L (12.0-16.0) g/dL Hct 31.0 L (36.0-46.0) % MCV 95.4 (80.0-98.0) fL MCH 32.0 (27.0-32.0) pg MCHC 33.5 (31.0-37.0) g/dL RDW Std Deviation 45.9 (28.0-62.0) fl RDW Coeff of Jacob 13 (11.0-15.0) % Plt Count 335 (150-400) K/uL MPV 9.70 (7.40-12.00) fL Neut % (Auto) 70.7 (48.0-80.0) % Lymph % (Auto) 15.6 L (16.0-40.0) % [place] % (Auto) 10.6 (0.0-15.0) % Eos % (Auto) 2.8 (0.0-7.0) % Baso % (Auto) 0.3 (0.0-1.5) % Neut # (Auto) 6.3 H (1.4-5.7) K/uL Lymph # (Auto) 1.4 (0.6-2.4) K/uL [place] # (Auto) 0.9 H (0.0-0.8) K/uL Eos # (Auto) 0.3 (0.0-0.7) K/uL Baso # (Auto) 0.0 (0.0-0.1) K/uL Nucleated RBC % 0.0 /100WBC Nucleated RBCs # 0 K/uL Sodium 139 (136-145) mmol/L Potassium 4.1 (3.5-5.1) mmol/L Chloride 106 (98-107) mmol/L Carbon Dioxide 20.8 L (21.0-32.0) mmol/L BUN 37 H (7.0-18.0) mg/dL Creatinine 1.4 H (0.6-1.0) mg/dL Est Cr Clr Drug Dosing 31.50 mL/min Estimated GFR (MDRD) 36.5 ml/min Glucose 115 H (74-106) mg/dL POC Glucose 105 (60-110) mg/dL Calcium 9.6 (8.5-10.1) mg/dL Total Bilirubin 0.5 (0.2-1.0) mg/dL AST 40 H (15-37) IU/L ALT 64 H (14-63) IU/L Alkaline Phosphatase 101 (46-116) U/L Total Protein 7.7 (6.4-8.2) g/dL Albumin 2.4 L (3.4-5.0) g/dL Globulin 5.3 H (2.6-4.0) g/dL Albumin/Globulin Ratio 0.5 L (0.9-1.6) Evan Results Last 24 Hours: Microbiology 10/12/18 14:10 Aerobic Blood Culture - Preliminary Blood - Venous - Lab Draw NO GROWTH AFTER 1 DAY Anaerobic Blood Culture - Preliminary NO GROWTH AFTER 1 DAY 10/12/18 14:00 Aerobic Blood Culture - Preliminary Blood - Venous NO GROWTH AFTER 1 DAY Anaerobic Blood Culture - Preliminary NO GROWTH AFTER 1 DAY 10/12/18 11:53 Gram Stain - Preliminary Sputum - Expectorated Med Orders - Current: Current Medications Acetaminophen (Tylenol) 650 mg PO Q4H PRN PRN Reason: Pain (Mild 1-3)/fever Albuterol (Proventil Neb Soln) 2.5 mg NEB Q2H PRN PRN Reason: Shortness Of Breath/wheezing Last Admin: 10/14/18 09:13 Dose: 2.5 mg Albuterol (Ventolin Hfa) 0 gm INH QID PRN PRN Reason: Wheezing Atorvastatin Calcium (Lipitor) 10 mg PO BEDTIME [facility] Last Admin: 10/13/18 20:48 Dose: 10 mg Enoxaparin Sodium (Lovenox) 40 mg SUBCUT Q24H [facility] Last Admin: 10/13/18 16:22 Dose: 40 mg Gemfibrozil (Lopid) 600 mg PO BID [facility] Last Admin: 10/13/18 10:07 Dose: Not Given Levofloxacin/Dextrose 750 mg/ (Premix) 150 mls @ 100 mls/hr IV Q48H [facility] Last Admin: 10/14/18 08:49 Dose: 100 mls/hr Insulin Aspart (Novolog) 0 unit SUBCUT TIDAC [facility]; Protocol Last Admin: 10/14/18 07:47 Dose: Not Given Lisinopril (Prinivil) 20 mg PO DAILY [facility] Last Admin: 10/14/18 08:26 Dose: 20 mg Ondansetron HCl (Zofran Odt) 4 mg PO Q4H PRN PRN Reason: nausea, able to take PO Ondansetron HCl (Zofran) 4 mg IVPUSH Q4H PRN PRN Reason: Nausea Pantoprazole Sodium (Protonix) 40 mg PO DAILY [facility] Last Admin: 10/14/18 08:26 Dose: 40 mg Estradiol [Estrace (Vaginal]) 1 each VAG ASDIRECTED [facility] Sertraline HCl (Zoloft) 50 mg PO DAILY [facility] Last Admin: 10/14/18 08:26 Dose: 50 mg Triamterene/HCTZ (Maxzide 25-37.5 Mg) 1 each PO DAILY [facility] Last Admin: 10/14/18 08:26 Dose: 1 each Discontinued Medications Albuterol/Ipratropium (Duoneb 3.0-0.5 Mg/3 Ml) 3 ml NEB ONETIME ONE Stop: 10/12/18 14:09 Last Admin: 10/12/18 14:14 Dose: 3 ml Sodium Chloride (Normal Saline) 1,000 mls @ 999 mls/hr IV STAT ONE Stop: 10/12/18 15:01 Last Admin: 10/12/18 14:17 Dose: 999 mls/hr Levofloxacin/Dextrose 500 mg/ (Premix) 100 mls @ 100 mls/hr IV ONETIME ONE Stop: 10/12/18 15:05 Last Admin: 10/12/18 14:17 Dose: 100 mls/hr Sodium Chloride (Normal Saline) 1,000 mls @ 100 mls/hr IV STAT LINDA Last Admin: 10/13/18 10:07 Dose: 125 mls/hr Potassium Chloride (Klor-Con M20) 40 meq PO ONETIME ONE Stop: 10/13/18 09:00 Last Admin: 10/13/18 10:06 Dose: 40 meq - Exam General: Alert, Oriented, Cooperative, No Acute Distress Lungs: Clear to Auscultation, Wheezing. No: Crackles Cardiovascular: Regular Rate, Regular Rhythm GI/Abdominal Exam: Normal Bowel Sounds, Soft, Non-Tender Extremities: Normal Inspection, No Pedal Edema Skin: Warm, Dry - Problem List Review Problem List Initiated/Reviewed/Updated: Yes - My Orders Last 24 Hours: My Active Orders 10/14/18 09:00 Levofloxacin/Dextrose 5%-Water [Levaquin in D5W 750 MG/150 ML] 750 mg Premix Bag 1 bag IV Q48H - Plan Plan:: A: 1. Community acquired pneumonia 2. SAULO, improving 3. UTI 4. Hypokalemia 5. PMH DM2, HTN, Hyperlipidemia P: 1. Overall improving. Will continue to treat for CAP and UTI with Levaquin. Ordered albuterol neb for wheezing. Continue maintenance fluids for now. Plan to DC tomorrow. <Cortez Steinberg - Last Filed: 10/14/18 11:05> - General Info Admission Dx/Problem (Free Text): I have examined the patient independently of medical or surgical instrument maker, Dr. Maria Teresa MD. I have discussed the case with him. I have reviewed and agree with the examination and plan as outlined by him. Please see orders. - Patient Data Vitals - Most Recent: Last Vital Signs Temp 36.6 C 10/14/18 07:53 Pulse 55 L 10/14/18 07:53 Resp 16 10/14/18 07:53 BP 132/63 10/14/18 08:26 Pulse Ox 95 10/14/18 07:53 I&O - Last 24 Hours: Intake & Output 10/13/18 10/14/18 10/14/18 22:59 06:59 14:59 Intake Total 2200 300 150 Output Total 1550 2200 Balance 650 -1900 150 Lab Results Last 24 Hours: Laboratory Results - last 24 hr 10/13/18 10/13/18 10/13/18 Range/Units 12:05 17:27 21:34 WBC (4.0-11.0) K/uL RBC (4.30-5.90) M/uL Hgb (12.0-16.0) g/dL Hct (36.0-46.0) % MCV (80.0-98.0) fL MCH (27.0-32.0) pg MCHC (31.0-37.0) g/dL RDW Std Deviation (28.0-62.0) fl RDW Coeff of Jacob (11.0-15.0) % Plt Count (150-400) K/uL MPV (7.40-12.00) fL Neut % (Auto) (48.0-80.0) % Lymph % (Auto) (16.0-40.0) % [place] % (Auto) (0.0-15.0) % Eos % (Auto) (0.0-7.0) % Baso % (Auto) (0.0-1.5) % Neut # (Auto) (1.4-5.7) K/uL Lymph # (Auto) (0.6-2.4) K/uL [place] # (Auto) (0.0-0.8) K/uL Eos # (Auto) (0.0-0.7) K/uL Baso # (Auto) (0.0-0.1) K/uL Nucleated RBC % /100WBC Nucleated RBCs # K/uL Sodium (136-145) mmol/L Potassium (3.5-5.1) mmol/L Chloride (98-107) mmol/L Carbon Dioxide (21.0-32.0) mmol/L BUN (7.0-18.0) mg/dL Creatinine (0.6-1.0) mg/dL Est Cr Clr Drug Dosing mL/min Estimated GFR (MDRD) ml/min Glucose (74-106) mg/dL POC Glucose 96 101 95 (60-110) mg/dL Calcium (8.5-10.1) mg/dL Total Bilirubin (0.2-1.0) mg/dL AST (15-37) IU/L ALT (14-63) IU/L Alkaline Phosphatase (46-116) U/L Total Protein (6.4-8.2) g/dL Albumin (3.4-5.0) g/dL Globulin (2.6-4.0) g/dL Albumin/Globulin Ratio (0.9-1.6) 10/14/18 10/14/18 10/14/18 Range/Units 05:58 05:58 06:26 WBC 8.89 (4.0-11.0) K/uL RBC 3.25 L (4.30-5.90) M/uL Hgb 10.4 L (12.0-16.0) g/dL Hct 31.0 L (36.0-46.0) % MCV 95.4 (80.0-98.0) fL MCH 32.0 (27.0-32.0) pg MCHC 33.5 (31.0-37.0) g/dL RDW Std Deviation 45.9 (28.0-62.0) fl RDW Coeff of Jacob 13 (11.0-15.0) % Plt Count 335 (150-400) K/uL MPV 9.70 (7.40-12.00) fL Neut % (Auto) 70.7 (48.0-80.0) % Lymph % (Auto) 15.6 L (16.0-40.0) % [place] % (Auto) 10.6 (0.0-15.0) % Eos % (Auto) 2.8 (0.0-7.0) % Baso % (Auto) 0.3 (0.0-1.5) % Neut # (Auto) 6.3 H (1.4-5.7) K/uL Lymph # (Auto) 1.4 (0.6-2.4) K/uL [place] # (Auto) 0.9 H (0.0-0.8) K/uL Eos # (Auto) 0.3 (0.0-0.7) K/uL Baso # (Auto) 0.0 (0.0-0.1) K/uL Nucleated RBC % 0.0 /100WBC Nucleated RBCs # 0 K/uL Sodium 139 (136-145) mmol/L Potassium 4.1 (3.5-5.1) mmol/L Chloride 106 (98-107) mmol/L Carbon Dioxide 20.8 L (21.0-32.0) mmol/L BUN 37 H (7.0-18.0) mg/dL Creatinine 1.4 H (0.6-1.0) mg/dL Est Cr Clr Drug Dosing 31.50 mL/min Estimated GFR (MDRD) 36.5 ml/min Glucose 115 H (74-106) mg/dL POC Glucose 105 (60-110) mg/dL Calcium 9.6 (8.5-10.1) mg/dL Total Bilirubin 0.5 (0.2-1.0) mg/dL AST 40 H (15-37) IU/L ALT 64 H (14-63) IU/L Alkaline Phosphatase 101 (46-116) U/L Total Protein 7.7 (6.4-8.2) g/dL Albumin 2.4 L (3.4-5.0) g/dL Globulin 5.3 H (2.6-4.0) g/dL Albumin/Globulin Ratio 0.5 L (0.9-1.6) Evan Results Last 24 Hours: Microbiology 10/12/18 14:10 Aerobic Blood Culture - Preliminary Blood - Venous - Lab Draw NO GROWTH AFTER 1 DAY Anaerobic Blood Culture - Preliminary NO GROWTH AFTER 1 DAY 10/12/18 14:00 Aerobic Blood Culture - Preliminary Blood - Venous NO GROWTH AFTER 1 DAY Anaerobic Blood Culture - Preliminary NO GROWTH AFTER 1 DAY 10/12/18 11:53 Gram Stain - Preliminary Sputum - Expectorated Med Orders - Current: Current Medications Acetaminophen (Tylenol) 650 mg PO Q4H PRN PRN Reason: Pain (Mild 1-3)/fever Albuterol (Proventil Neb Soln) 2.5 mg NEB Q2H PRN PRN Reason: Shortness Of Breath/wheezing Last Admin: 10/14/18 09:13 Dose: 2.5 mg Albuterol (Ventolin Hfa) 0 gm INH QID PRN PRN Reason: Wheezing Atorvastatin Calcium (Lipitor) 10 mg PO BEDTIME [facility] Last Admin: 10/13/18 20:48 Dose: 10 mg Enoxaparin Sodium (Lovenox) 40 mg SUBCUT Q24H [facility] Last Admin: 10/13/18 16:22 Dose: 40 mg Gemfibrozil (Lopid) 600 mg PO BID [facility] Last Admin: 10/13/18 10:07 Dose: Not Given Levofloxacin/Dextrose 750 mg/ (Premix) 150 mls @ 100 mls/hr IV Q48H [facility] Last Admin: 10/14/18 08:49 Dose: 100 mls/hr Insulin Aspart (Novolog) 0 unit SUBCUT TIDAC [facility]; Protocol Last Admin: 10/14/18 07:47 Dose: Not Given Lisinopril (Prinivil) 20 mg PO DAILY [facility] Last Admin: 10/14/18 08:26 Dose: 20 mg Ondansetron HCl (Zofran Odt) 4 mg PO Q4H PRN PRN Reason: nausea, able to take PO Ondansetron HCl (Zofran) 4 mg IVPUSH Q4H PRN PRN Reason: Nausea Pantoprazole Sodium (Protonix) 40 mg PO DAILY [facility] Last Admin: 10/14/18 08:26 Dose: 40 mg Estradiol [Estrace (Vaginal]) 1 each VAG ASDIRECTED [facility] Sertraline HCl (Zoloft) 50 mg PO DAILY [facility] Last Admin: 10/14/18 08:26 Dose: 50 mg Triamterene/HCTZ (Maxzide 25-37.5 Mg) 1 each PO DAILY [facility] Last Admin: 10/14/18 08:26 Dose: 1 each Discontinued Medications Albuterol/Ipratropium (Duoneb 3.0-0.5 Mg/3 Ml) 3 ml NEB ONETIME ONE Stop: 10/12/18 14:09 Last Admin: 10/12/18 14:14 Dose: 3 ml Sodium Chloride (Normal Saline) 1,000 mls @ 999 mls/hr IV STAT ONE Stop: 10/12/18 15:01 Last Admin: 10/12/18 14:17 Dose: 999 mls/hr Levofloxacin/Dextrose 500 mg/ (Premix) 100 mls @ 100 mls/hr IV ONETIME ONE Stop: 10/12/18 15:05 Last Admin: 10/12/18 14:17 Dose: 100 mls/hr Sodium Chloride (Normal Saline) 1,000 mls @ 100 mls/hr IV STAT LINDA Last Admin: 10/13/18 10:07 Dose: 125 mls/hr Potassium Chloride (Klor-Con M20) 40 meq PO ONETIME ONE Stop: 10/13/18 09:00 Last Admin: 10/13/18 10:06 Dose: 40 meq
[2018-10-14] MEDS: Enoxaparin 40 MG/0.4 ML Syringe SUBCUT SCH (15:43)
[2018-10-14] MEDS: atorvaSTATin 10 MG Tab PO SCH (20:43)
[2018-10-15] MEDS: Insulin Aspart 100 Units/ML 3 ML Pen SUBCUT SCH (08:32)
[2018-10-15] MEDS: Pantoprazole 40 MG Tab.CR PO SCH (08:33)
[2018-10-15] MEDS: Sertraline 50 MG Tab PO SCH (08:33)
[2018-10-15] MEDS: Lisinopril 10 MG Tab PO SCH (08:33)
[2018-10-15] MEDS: Hydrochlorothiazide/Triamterene 25-37.5 Tab PO SCH (08:33)
--- NOTE | 2018-10-15 08:46 | PCM.DCSUM1 ---
<Garcia Neri - Last Filed: 10/15/18 08:41> Discharge Summary - Hospital Course Free Text/Narrative:: 78-year-old female admitted for community acquired pneumonia and SAULO. Patient was treated with IV levaquin q48h and started on IV fluids. She did not require supplemental oxygen and vital signs remained stable throughout her hospitalization. Her leukocytosis and kidney function did improve during her hospitalization. UA did show urinary tract infection. On day of discharge, patient noted improvement in breathing and reported feeling better. She was discharged on levaquin q48h x 5 doses adjusted for creatinine clearance. Instructed to follow-up with PCP within 1 week. - Discharge Data Discharge Date: 10/15/18 Discharge Disposition: Home, Self-Care 01 Condition: Good - Discharge Diagnosis/Problem(s) (1) SAULO (acute kidney injury) SNOMED Code(s): 87228654, [id number] ICD Code: N17.9 - ACUTE KIDNEY FAILURE, UNSPECIFIED Status: Acute (2) Community acquired pneumonia of right middle lobe of lung SNOMED Code(s): 344176553 ICD Code: J18.1 - LOBAR PNEUMONIA, UNSPECIFIED ORGANISM Status: Acute - Patient Instructions Diet: Diabetic Diet Activity: As Tolerated Notify Provider of: Fever, Increased Pain, Swelling and Redness, Drainage, Nausea and/or Vomiting - Discharge Plan *PRESCRIPTION DRUG MONITORING PROGRAM REVIEWED*: Not Applicable *COPY OF PRESCRIPTION DRUG MONITORING REPORT IN PATIENT LENIN: Not Applicable Prescriptions/Med Rec: Levofloxacin [Levaquin] 750 mg PO Q48H 5 Days #5 tablet Home Medications: Home Meds Gemfibrozil 600 mg PO BID 05/20/17 [History] Lisinopril 20 mg PO DAILY 05/20/17 [History] Pantoprazole [ProTONIX] 40 mg PO DAILY 05/20/17 [History] Sertraline [Zoloft] 50 mg PO DAILY 05/20/17 [History] SitaGLIPtin [Januvia] 50 mg PO DAILY 05/20/17 [History] Triamterene/Hydrochlorothiazid [Triamterene-HCTZ 37.5-25 MG] 1 tab PO DAILY [History] atorvaSTATin [Lipitor] 10 mg PO BEDTIME 05/20/17 [History] Albuterol [Ventolin HFA] 1 puff INH QID PRN 10/12/18 [History] Blood-Glucose Control, Low [True Metrix] 1 each MC BID 10/12/18 [History] Estradiol [Estrace 0.01% Vaginal Crm] 1 applic VAG .2-3TIMESWEEKLY 10/12/18 [ History] Lancets 1 each MC BID 10/12/18 [History] Levofloxacin [Levaquin] 750 mg PO Q48H 5 Days #5 tablet 10/15/18 [Rx] Patient Handouts: Levofloxacin tablets, Community-Acquired Pneumonia, Adult, [id number] Referrals: Geronimo Shepherd MD [Primary Care Provider] - 10/24/18 3:15 pm (Must arrive and 300 with photo ID and insurence card, or they will not be able to see you.) - Discharge Summary/Plan Comment DC Time >30 min.: No - Patient Data Vitals - Most Recent: Last Vital Signs Temp 97.3 F 10/15/18 07:00 Pulse 60 10/15/18 07:00 Resp 16 10/15/18 07:00 BP 126/49 L 10/15/18 08:33 Pulse Ox 95 10/15/18 07:00 Weight - Most Recent: 100.698 kg I&O - Last 24 hours: Intake & Output 10/14/18 10/15/18 10/15/18 22:59 06:59 14:59 Intake Total 1400 750 Output Total 1020 1950 Balance 380 -1200 Lab Results - Last 24 hrs: Laboratory Results - last 24 hr 10/14/18 10/14/18 10/15/18 Range/Units 12:04 17:02 04:57 WBC 8.50 (4.0-11.0) K/uL RBC 3.32 L (4.30-5.90) M/uL Hgb 10.6 L (12.0-16.0) g/dL Hct 32.0 L (36.0-46.0) % MCV 96.4 (80.0-98.0) fL MCH 31.9 (27.0-32.0) pg MCHC 33.1 (31.0-37.0) g/dL RDW Std Deviation 46.3 (28.0-62.0) fl RDW Coeff of Jacob 13 (11.0-15.0) % Plt Count 399 (150-400) K/uL MPV 9.50 (7.40-12.00) fL Nucleated RBC % 0.0 /100WBC Nucleated RBCs # 0 K/uL Sodium (136-145) mmol/L Potassium (3.5-5.1) mmol/L Chloride (98-107) mmol/L Carbon Dioxide (21.0-32.0) mmol/L BUN (7.0-18.0) mg/dL Creatinine (0.6-1.0) mg/dL Est Cr Clr Drug Dosing mL/min Estimated GFR (MDRD) ml/min Glucose (74-106) mg/dL POC Glucose 93 117 H (60-110) mg/dL Calcium (8.5-10.1) mg/dL Total Bilirubin (0.2-1.0) mg/dL AST (15-37) IU/L ALT (14-63) IU/L Alkaline Phosphatase (46-116) U/L Total Protein (6.4-8.2) g/dL Albumin (3.4-5.0) g/dL Globulin (2.6-4.0) g/dL Albumin/Globulin Ratio (0.9-1.6) 10/15/18 10/15/18 Range/Units 04:57 06:46 WBC (4.0-11.0) K/uL RBC (4.30-5.90) M/uL Hgb (12.0-16.0) g/dL Hct (36.0-46.0) % MCV (80.0-98.0) fL MCH (27.0-32.0) pg MCHC (31.0-37.0) g/dL RDW Std Deviation (28.0-62.0) fl RDW Coeff of Jacob (11.0-15.0) % Plt Count (150-400) K/uL MPV (7.40-12.00) fL Nucleated RBC % /100WBC Nucleated RBCs # K/uL Sodium 140 (136-145) mmol/L Potassium 4.2 (3.5-5.1) mmol/L Chloride 106 (98-107) mmol/L Carbon Dioxide 21.2 (21.0-32.0) mmol/L BUN 32 H (7.0-18.0) mg/dL Creatinine 1.2 H (0.6-1.0) mg/dL Est Cr Clr Drug Dosing 36.75 mL/min Estimated GFR (MDRD) 43.6 ml/min Glucose 130 H (74-106) mg/dL POC Glucose 120 H (60-110) mg/dL Calcium 9.8 (8.5-10.1) mg/dL Total Bilirubin 0.4 (0.2-1.0) mg/dL AST 30 (15-37) IU/L ALT 53 (14-63) IU/L Alkaline Phosphatase 103 (46-116) U/L Total Protein 7.6 (6.4-8.2) g/dL Albumin 2.4 L (3.4-5.0) g/dL Globulin 5.2 H (2.6-4.0) g/dL Albumin/Globulin Ratio 0.5 L (0.9-1.6) ARLEY Results - Last 24 hrs: Microbiology 10/12/18 14:10 Aerobic Blood Culture - Preliminary Blood - Venous - Lab Draw NO GROWTH AFTER 2 DAYS Anaerobic Blood Culture - Preliminary NO GROWTH AFTER 2 DAYS 10/12/18 14:00 Aerobic Blood Culture - Preliminary Blood - Venous NO GROWTH AFTER 2 DAYS Anaerobic Blood Culture - Preliminary NO GROWTH AFTER 2 DAYS 10/12/18 22:38 Urine Culture - Final Urine, Clean Catch MIXED KIMBERLY 10,000-100,000 CFU/ML Med Orders - Current: Current Medications Acetaminophen (Tylenol) 650 mg PO Q4H PRN PRN Reason: Pain (Mild 1-3)/fever Albuterol (Proventil Neb Soln) 2.5 mg NEB Q2H PRN PRN Reason: Shortness Of Breath/wheezing Last Admin: 10/14/18 09:13 Dose: 2.5 mg Albuterol (Ventolin Hfa) 0 gm INH QID PRN PRN Reason: Wheezing Atorvastatin Calcium (Lipitor) 10 mg PO BEDTIME [facility] Last Admin: 10/14/18 20:43 Dose: 10 mg Enoxaparin Sodium (Lovenox) 40 mg SUBCUT Q24H [facility] Last Admin: 10/14/18 15:43 Dose: 40 mg Gemfibrozil (Lopid) 600 mg PO BID [facility] Last Admin: 10/13/18 10:07 Dose: Not Given Levofloxacin/Dextrose 750 mg/ (Premix) 150 mls @ 100 mls/hr IV Q48H [facility] Last Admin: 10/14/18 08:49 Dose: 100 mls/hr Insulin Aspart (Novolog) 0 unit SUBCUT TIDAC [facility]; Protocol Last Admin: 10/15/18 08:32 Dose: Not Given Lisinopril (Prinivil) 20 mg PO DAILY [facility] Last Admin: 10/15/18 08:33 Dose: 20 mg Ondansetron HCl (Zofran Odt) 4 mg PO Q4H PRN PRN Reason: nausea, able to take PO Ondansetron HCl (Zofran) 4 mg IVPUSH Q4H PRN PRN Reason: Nausea Pantoprazole Sodium (Protonix) 40 mg PO DAILY [facility] Last Admin: 10/15/18 08:33 Dose: 40 mg Estradiol [Estrace (Vaginal]) 1 each VAG ASDIRECTED [facility] Sertraline HCl (Zoloft) 50 mg PO DAILY [facility] Last Admin: 10/15/18 08:33 Dose: 50 mg Triamterene/HCTZ (Maxzide 25-37.5 Mg) 1 each PO DAILY [facility] Last Admin: 10/15/18 08:33 Dose: 1 each Discontinued Medications Albuterol/Ipratropium (Duoneb 3.0-0.5 Mg/3 Ml) 3 ml NEB ONETIME ONE Stop: 10/12/18 14:09 Last Admin: 10/12/18 14:14 Dose: 3 ml Sodium Chloride (Normal Saline) 1,000 mls @ 999 mls/hr IV STAT ONE Stop: 10/12/18 15:01 Last Admin: 10/12/18 14:17 Dose: 999 mls/hr Levofloxacin/Dextrose 500 mg/ (Premix) 100 mls @ 100 mls/hr IV ONETIME ONE Stop: 10/12/18 15:05 Last Admin: 10/12/18 14:17 Dose: 100 mls/hr Sodium Chloride (Normal Saline) 1,000 mls @ 100 mls/hr IV STAT [facility] Last Admin: 10/13/18 10:07 Dose: 125 mls/hr Potassium Chloride (Klor-Con M20) 40 meq PO ONETIME ONE Stop: 10/13/18 09:00 Last Admin: 10/13/18 10:06 Dose: 40 meq <Cortez Steinberg Last Filed: 10/15/18 13:49> Discharge Summary - Hospital Course Free Text/Narrative:: I have seen and evaluated the patient independent of [facility], Dr. Halle MD. I have reviewed and agree with the plan and care as outlined for this patient by him. I have discussed the case with him. Please see orders. - Patient Data Vitals - Most Recent: Last Vital Signs Temp 36.3 C 10/15/18 07:00 Pulse 60 10/15/18 07:00 Resp 16 10/15/18 07:00 BP 126/49 L 10/15/18 08:33 Pulse Ox 95 10/15/18 07:00 I&O - Last 24 hours: Intake & Output 10/14/18 10/15/18 10/15/18 22:59 06:59 14:59 Intake Total 1400 750 440 Output Total 1020 1950 400 Balance 380 -1200 40 Lab Results - Last 24 hrs: Laboratory Results - last 24 hr 10/14/18 10/15/18 10/15/18 Range/Units 17:02 04:57 04:57 WBC 8.50 (4.0-11.0) K/uL RBC 3.32 L (4.30-5.90) M/uL Hgb 10.6 L (12.0-16.0) g/dL Hct 32.0 L (36.0-46.0) % MCV 96.4 (80.0-98.0) fL MCH 31.9 (27.0-32.0) pg MCHC 33.1 (31.0-37.0) g/dL RDW Std Deviation 46.3 (28.0-62.0) fl RDW Coeff of Jacob 13 (11.0-15.0) % Plt Count 399 (150-400) K/uL MPV 9.50 (7.40-12.00) fL Nucleated RBC % 0.0 /100WBC Nucleated RBCs # 0 K/uL Sodium 140 (136-145) mmol/L Potassium 4.2 (3.5-5.1) mmol/L Chloride 106 (98-107) mmol/L Carbon Dioxide 21.2 (21.0-32.0) mmol/L BUN 32 H (7.0-18.0) mg/dL Creatinine 1.2 H (0.6-1.0) mg/dL Est Cr Clr Drug Dosing 36.75 mL/min Estimated GFR (MDRD) 43.6 ml/min Glucose 130 H (74-106) mg/dL POC Glucose 117 H (60-110) mg/dL Calcium 9.8 (8.5-10.1) mg/dL Total Bilirubin 0.4 (0.2-1.0) mg/dL AST 30 (15-37) IU/L ALT 53 (14-63) IU/L Alkaline Phosphatase 103 (46-116) U/L Total Protein 7.6 (6.4-8.2) g/dL Albumin 2.4 L (3.4-5.0) g/dL Globulin 5.2 H (2.6-4.0) g/dL Albumin/Globulin Ratio 0.5 L (0.9-1.6) 10/15/18 Range/Units 06:46 WBC (4.0-11.0) K/uL RBC (4.30-5.90) M/uL Hgb (12.0-16.0) g/dL Hct (36.0-46.0) % MCV (80.0-98.0) fL MCH (27.0-32.0) pg MCHC (31.0-37.0) g/dL RDW Std Deviation (28.0-62.0) fl RDW Coeff of Jacob (11.0-15.0) % Plt Count (150-400) K/uL MPV (7.40-12.00) fL Nucleated RBC % /100WBC Nucleated RBCs # K/uL Sodium (136-145) mmol/L Potassium (3.5-5.1) mmol/L Chloride (98-107) mmol/L Carbon Dioxide (21.0-32.0) mmol/L BUN (7.0-18.0) mg/dL Creatinine (0.6-1.0) mg/dL Est Cr Clr Drug Dosing mL/min Estimated GFR (MDRD) ml/min Glucose (74-106) mg/dL POC Glucose 120 H (60-110) mg/dL Calcium (8.5-10.1) mg/dL Total Bilirubin (0.2-1.0) mg/dL AST (15-37) IU/L ALT (14-63) IU/L Alkaline Phosphatase (46-116) U/L Total Protein (6.4-8.2) g/dL Albumin (3.4-5.0) g/dL Globulin (2.6-4.0) g/dL Albumin/Globulin Ratio (0.9-1.6) ARLEY Results - Last 24 hrs: Microbiology 10/12/18 11:53 Gram Stain - Final Sputum - Expectorated Sputum Culture - Final Normal Respiratory Kimberly 10/12/18 14:10 Aerobic Blood Culture - Preliminary Blood - Venous - Lab Draw NO GROWTH AFTER 2 DAYS Anaerobic Blood Culture - Preliminary NO GROWTH AFTER 2 DAYS 10/12/18 14:00 Aerobic Blood Culture - Preliminary Blood - Venous NO GROWTH AFTER 2 DAYS Anaerobic Blood Culture - Preliminary NO GROWTH AFTER 2 DAYS 10/12/18 22:38 Urine Culture - Final Urine, Clean Catch MIXED KIMBERLY 10,000-100,000 CFU/ML Med Orders - Current: Current Medications Discontinued Medications Acetaminophen (Tylenol) 650 mg PO Q4H PRN PRN Reason: Pain (Mild 1-3)/fever Albuterol (Proventil Neb Soln) 2.5 mg NEB Q2H PRN PRN Reason: Shortness Of Breath/wheezing Last Admin: 10/14/18 09:13 Dose: 2.5 mg Albuterol (Ventolin Hfa) 0 gm INH QID PRN PRN Reason: Wheezing Albuterol/Ipratropium (Duoneb 3.0-0.5 Mg/3 Ml) 3 ml NEB ONETIME ONE Stop: 10/12/18 14:09 Last Admin: 10/12/18 14:14 Dose: 3 ml Atorvastatin Calcium (Lipitor) 10 mg PO BEDTIME [facility] Last Admin: 10/14/18 20:43 Dose: 10 mg Enoxaparin Sodium (Lovenox) 40 mg SUBCUT Q24H [facility] Last Admin: 10/14/18 15:43 Dose: 40 mg Gemfibrozil (Lopid) 600 mg PO BID [facility] Last Admin: 10/13/18 10:07 Dose: Not Given Sodium Chloride (Normal Saline) 1,000 mls @ 999 mls/hr IV STAT ONE Stop: 10/12/18 15:01 Last Admin: 10/12/18 14:17 Dose: 999 mls/hr Levofloxacin/Dextrose 500 mg/ (Premix) 100 mls @ 100 mls/hr IV ONETIME ONE Stop: 10/12/18 15:05 Last Admin: 10/12/18 14:17 Dose: 100 mls/hr Sodium Chloride (Normal Saline) 1,000 mls @ 100 mls/hr IV STAT [facility] Last Admin: 10/13/18 10:07 Dose: 125 mls/hr Levofloxacin/Dextrose 750 mg/ (Premix) 150 mls @ 100 mls/hr IV Q48H [facility] Last Admin: 10/14/18 08:49 Dose: 100 mls/hr Insulin Aspart (Novolog) 0 unit SUBCUT TIDAC [facility]; Protocol Last Admin: 10/15/18 08:32 Dose: Not Given Lisinopril (Prinivil) 20 mg PO DAILY [facility] Last Admin: 10/15/18 08:33 Dose: 20 mg Ondansetron HCl (Zofran Odt) 4 mg PO Q4H PRN PRN Reason: nausea, able to take PO Ondansetron HCl (Zofran) 4 mg IVPUSH Q4H PRN PRN Reason: Nausea Pantoprazole Sodium (Protonix) 40 mg PO DAILY [facility] Last Admin: 10/15/18 08:33 Dose: 40 mg Estradiol [Estrace (Vaginal]) 1 each VAG ASDIRECTED [facility] Potassium Chloride (Klor-Con M20) 40 meq PO ONETIME ONE Stop: 10/13/18 09:00 Last Admin: 10/13/18 10:06 Dose: 40 meq Sertraline HCl (Zoloft) 50 mg PO DAILY [facility] Last Admin: 10/15/18 08:33 Dose: 50 mg Triamterene/HCTZ (Maxzide 25-37.5 Mg) 1 each PO DAILY [facility] Last Admin: 10/15/18 08:33 Dose: 1 each
--- NOTE | 2018-10-15 15:38 | CR ---
Chest: 2 views of the chest were obtained. Comparison: Prior chest x-ray of 05/20/17. Heart size is normal. Mild tortuosity of the thoracic aorta is seen with atherosclerotic calcification. Consolidating density is seen within the right middle lobe which is best noted on the frontal view. This is an interval change from previous study. Lungs otherwise are clear. Slight degenerative change is noted within the lower thoracic spine. Impression: 1. Consolidating density within the right middle lobe. Recommend treatment as a pneumonia and follow-up chest x-ray in 2-4 weeks after therapy is complete make sure findings resolve and consolidation does not represent other etiology. 2. Other findings which are thought to be incidental. Diagnostic code #9
== END 2018-10-15 11:30 | disposition home or self-care (01) ==
LOC: MW.ED 13:46 → MW.MS 17:03
PROVIDERS: ADMIT Internal Medicine; ATTEND Internal Medicine
DX: J18.1 Lobar pneumonia, unspecified organism (principal); N17.9 Acute kidney failure, unspecified; I10 Essential (primary) hypertension; M19.90 Unspecified osteoarthritis, unspecified site; F32.9 Major depressive disorder, single episode, unspecified; E11.9 Type 2 diabetes mellitus without complications; D72.829 Elevated white blood cell count, unspecified; E78.5 Hyperlipidemia, unspecified; F41.9 Anxiety disorder, unspecified; Z87.891 Personal history of nicotine dependence; Z79.899 Other long term (current) drug therapy; Z79.84 Long term (current) use of oral hypoglycemic drugs; Z88.1 Allergy status to other antibiotic agents; Z88.5 Allergy status to narcotic agent; Z91.018 Allergy to other foods
CPT/HCPCS: 36415; 51798; 71046; 80053; 81001; 82570; 82962; 83036; 83605; 84133; 84300; 85025; 85027; 87040; 87070; 87086; 87205; 87899; 93005; 94640; 96361; 96365; 96366; 96372; 99285; A9270; G0378; J1650; J1815; J1956; J7040; 99283; J7620-GY

== ENCOUNTER 2020-12-15 18:58 | Emergency (ER) | payer MEDICARE, OTHER ==
[2020-12-15] MEDS ORDERED: fentaNYL 50 MCG/ML SDV IVPUSH ONE ×3 (19:02→20:31)
[2020-12-15] MEDS ORDERED: fentaNYL 100 MCG/2 ML SDV ONE (19:02)
[2020-12-15] MEDS ORDERED: Ondansetron 4 MG/2 ML SDV ONE (19:03)
[2020-12-15] MEDS ORDERED: Ondansetron 4 MG/2 ML SDV IVPUSH ONE ×3 (19:04→20:31)
[2020-12-15] MEDS ORDERED: fentaNYL 50 MCG/ML SDV ONE (19:08)
--- NOTE | 2020-12-15 19:59 | CR ---
Indication: Fall, deformity. Technique: Right shoulder 2 views. Comparison: None. Findings: There is an acute comminuted and displaced fracture of the proximal humeral shaft extending to the humeral neck. The fracture fragments are slightly angulated. No definite dislocation of the glenohumeral joint, however positioning is suboptimal. Soft tissue swelling in the upper arm. The visualized right lung is clear. Impression: Acute comminuted, displaced, and slightly angulated fracture of the proximal humeral shaft extending to the humeral neck. Dictated by Georgie Espitia MD @ 12/15/2020 7:57:52 PM (Electronically Signed)
--- NOTE | 2020-12-15 20:41 | CR ---
INDICATION: Fracture. FINDINGS: Two views of the right humerus show a comminuted displaced fracture of the proximal to mid right humerus. No other evidence of acute fracture or dislocation. No other bony or soft tissue abnormalities identified. Dictated by David Alicea MD @ 12/15/2020 8:39:31 PM (Electronically Signed)
--- NOTE | 2020-12-15 21:29 | EDM.PDOC ---
ED HPI GENERAL MEDICAL PROBLEM - General Chief Complaint: Upper Extremity Injury/Pain Stated Complaint: FELL Time Seen by Provider: 12/15/20 19:00 - History of Present Illness INITIAL COMMENTS - FREE TEXT/NARRATIVE: HISTORY AND PHYSICAL: History of present illness: This is a 80-year-old female with history for hypertension, type 2 diabetes, obesity who presents ER today secondary to injury to her right upper extremity. Patient reports that she fell down 1-2 steps on the bleachers and try to brace herself and injured her right arm. Patient denies any head injury or head trauma. Patient has any pain to her upper or lower extremities other than her right upper extremity. Patient denies any C-spine T-spine or L-spine discomfort. Patient has any abdominal or chest pain. Patient has any loss of consciousness or head injury. Patient has a recent fevers, shakes, chills, nausea, vomiting, diarrhea, dysuria, frequency, urgency. Patient denies any loss of sensation or movement to her wrist or hands. Review of systems: As per history of present illness and below otherwise all systems reviewed and negative. Past medical history: As per history of present illness and as reviewed below otherwise noncontributory. Surgical history: As per history of present illness and as reviewed below otherwise noncontributory. Social history: No reported history of drug abuse. Family history: As per history of present illness and as reviewed below otherwise noncontributory. Physical exam: This patient was seen and evaluated during the 2019 SARS-CoV-2 novel coronavirus pandemic period. Community viral transmission is ongoing at time of this encounter and the emergency department is operating under pandemic response procedures. Constitutional: Patient is oriented to person, place, and time. Appears well-developed and well-nourished. No distress. HEENT: Moist mucous membranes Head: Normocephalic and atraumatic Eyes: Right eye exhibits no discharge. Left eye exhibits no discharge. No scleral icterus Neck: Normal range of motion. No tracheal deviation present. Cardiovascular: Normal rate and regular rhythm. Pulmonary: Effort normal, no respiratory distress. Abdominal: No distention Musculoskeletal: Normal range of motion Neurologic: Alert and oriented to person, place and time. Skin: [place], warm and dry. Psychiatric: Normal mood and affect. Behavior is normal. Judgment and thought content normal. Nursing note and vital signs have been reviewed Patient has no C-spine T-spine or L-spine tenderness to palpation. Patient has no left upper or right upper quadrant tenderness to palpation. Patient has no crepitus to palpation to the anterior chest wall. Patient is neurologically intact. Patient does not present with any signs or or symptoms that would be consistent with acute intracranial, intra-abdominal, intrathoracic, or long bone injury. All long bones have been palpated and range of motion been performed and there is no evidence of any acute pathology. Patient's ER physical exam is significant for tenderness to palpation to her right upper extremity. Patient is neurovascular intact. Patient has excellent pulses distally and are equal bilaterally to her left upper extremity. Patient has good flexion extension of her wrist and hands and fingers. Patient has good abduction/abduction of her thumb and fingers. Patient initially presented to the ED with her right arm abducted above her head. After x-ray was obtained I was able to bring her arm down easily without any resistance. Diagnostics: Coaptation splint applied to right upper extremity secondary to fracture of her right midshaft humerus. Coaptation splint applied secondary to fracture and need for immobilization. This will need to stay in place until reevaluation with orthopedic surgery. Patient is neurovascularly intact post splint placement X-ray of right humerus: Comminuted displaced fracture of the proximal to mid right humerus. No other evidence of acute fracture or dislocation identified. X-ray of right shoulder: No evidence of dislocation of the shoulder. X-ray reveals a comminuted displaced fracture of the proximal to mid right humerus. Therapeutics: Fentanyl 50 mcg IV x3 given in the ED with an additional 50 mcg given by EMS. Zofran Assessment and plan: 80-year-old female who presents ER today secondary to a comminuted displaced fracture of the proximal to mid right humerus. Patient has isolated injury to her right arm. No evidence of dislocation was identified. Patient is neurovascularly intact distally. Patient was placed in a coaptation splint and arm sling. I have discussed the case with Dr. Clovis leonard and they have agreed to assist us with outpatient management of this patient. They will notify patient by phone tomorrow for follow-up time. This was relayed to the patient and her sister who is at her bedside. Patient will be given a prescription for Rudyard, ibuprofen, Zofran to assist with pain management until she is able to see orthopedic surgery. Reassessment at the time of disposition demonstrates that the patient is in no acute distress. The patient has remained stable throughout the entire ED visit and is without objective evidence for acute process requiring urgent intervention or hospitalization. The patient is stable for discharge, counseling is provided as documented above, discussed symptomatic treatment and specific conditions for return. I have spoken with the patient/caregiver and discussed todays findings, in addition to providing specific details for the plan of care. Questions are answered and there is agreement with the plan. Definitive disposition and diagnosis as appropriate pending reevaluation and review of above. Right Shoulder Pain Score (Numeric/FACES): 10 - Related Data Allergies Allergy/AdvReac Type Severity Reaction Status Date / Time cephalexin [From Keflex] Allergy Rash Verified 12/15/20 19:03 codeine Allergy Respiratory Verified 12/15/20 19:03 Distress strawberry Allergy Rash Verified 12/15/20 19:03 Home Meds: Home Meds Gemfibrozil 600 mg PO BID 05/20/17 [History] Lisinopril 20 mg PO DAILY 05/20/17 [History] Pantoprazole [ProTONIX] 40 mg PO DAILY 05/20/17 [History] Sertraline [Zoloft] 50 mg PO DAILY 05/20/17 [History] SitaGLIPtin [Januvia] 50 mg PO DAILY 05/20/17 [History] Triamterene/Hydrochlorothiazid [Triamterene-HCTZ 37.5-25 MG] 1 tab PO DAILY 05/20/17 [History] atorvaSTATin [Lipitor] 10 mg PO BEDTIME 05/20/17 [History] Albuterol [Ventolin HFA] 1 puff INH QID PRN 10/12/18 [History] Blood-Glucose Control, Low [True Metrix] 1 each MC BID 10/12/18 [History] Lancets 1 each MC BID 10/12/18 [History] estradioL [Estrace 0.01% Vaginal Crm] 1 applic VAG .2-3TIMESWEEKLY 10/12/18 [History] levoFLOXacin [Levaquin] 750 mg PO Q48H 5 Days #5 tablet 10/15/18 [Rx] Hydrocodone/Acetaminophen [Hydrocodone-Acetamin 5-325 mg] 1 each PO Q6HR PRN #20 tab 12/15/20 [Rx] Ibuprofen 600 mg PO Q6HR PRN #30 tablet 12/15/20 [Rx] Ondansetron [Zofran ODT] 4 mg PO Q6H PRN #12 tab.dis 12/15/20 [Rx] Past Medical History HEENT History: Reports: Impaired Vision Cardiovascular History: Reports: Hypertension Respiratory History: Reports: None Gastrointestinal History: Reports: None Genitourinary History: Reports: Renal Calculus RODEO RIDER History: Reports: None Musculoskeletal History: Reports: Arthritis, Other (See Below) Other Musculoskeletal History: L shoulder and back pain chronic Neurological History: Reports: None Psychiatric History: Reports: Anxiety, Depression Endocrine/Metabolic History: Reports: None Hematologic History: Reports: None Immunologic History: Reports: None Oncologic (Cancer) History: Reports: None Dermatologic History: Reports: None - Infectious Disease History Infectious Disease History: Reports: Hepatitis C, Measles, Mumps - Past Surgical History Head Surgeries/Procedures: Reports: None HEENT Surgical History: Reports: Tonsillectomy Cardiovascular Surgical History: Reports: None Respiratory Surgical History: Reports: None GI Surgical History: Reports: None Female Surgical History: Reports: Hysterectomy, Kidney stone extraction Endocrine Surgical History: Reports: None Neurological Surgical History: Reports: None Musculoskeletal Surgical History: Reports: None Oncologic Surgical History: Reports: None Dermatological Surgical History: Reports: None Social & Family History - Family History Family Medical History: No Pertinent Family History Oncologic: Reports: Bladder Other Oncologic Family History: father - Tobacco Use Tobacco Use Status *Q: Former Tobacco User Used Tobacco, but Quit: Yes Month/Year Tobacco Last Used: 17 - Caffeine Use Caffeine Use: Reports: None - Recreational Drug Use Recreational Drug Use: No Review of Systems - Review of Systems Review Of Systems: See Below ED EXAM, GENERAL - Physical Exam Exam: See Below Course - Vital Signs Last Recorded V/S: Last Vital Signs Temp 97.3 F 12/15/20 19:10 Pulse 67 12/15/20 19:10 Resp 18 12/15/20 19:10 BP 157/65 H 12/15/20 19:10 Pulse Ox 99 12/15/20 19:10 - Orders/Labs/Meds Meds: Medications Discontinued Medications Generic Name Dose Route Start Last Admin Trade Name Freq PRN Reason Stop Dose Admin Fentanyl Confirm 12/15/20 19:02 12/15/20 19:16 Fentanyl 100 Mcg/2 Ml Sdv Administered 10/19/21 19:03 100 mcg Dose Administration 100 mcg .ROUTE .STK-MED ONE Fentanyl 50 mcg 12/15/20 19:02 12/15/20 19:17 Fentanyl 50 Mcg/Ml Sdv IVPUSH 12/15/20 19:03 50 mcg ONETIME ONE Administration Fentanyl Confirm 12/15/20 19:08 12/15/20 19:19 Fentanyl 50 Mcg/Ml Sdv Administered 12/15/20 19:09 Not Given Dose 50 mcg .ROUTE .STK-MED ONE Fentanyl 50 mcg 12/15/20 20:30 12/15/20 20:32 Fentanyl 50 Mcg/Ml Sdv IVPUSH 12/15/20 20:31 50 mcg ONETIME ONE Administration Fentanyl 50 mcg 12/15/20 20:31 12/15/20 20:33 Fentanyl 50 Mcg/Ml Sdv IVPUSH 12/15/20 20:32 Not Given ONETIME ONE Ondansetron HCl 4 mg 12/15/20 19:04 12/15/20 19:17 Ondansetron 4 Mg/2 Ml Sdv IVPUSH 12/15/20 19:05 4 mg ONETIME ONE Administration Ondansetron HCl Confirm 12/15/20 19:03 12/15/20 19:18 Ondansetron 4 Mg/2 Ml Sdv Administered 12/15/20 19:04 Not Given Dose 4 mg .ROUTE .STK-MED ONE Ondansetron HCl 4 mg 12/15/20 20:30 12/15/20 20:32 Ondansetron 4 Mg/2 Ml Sdv IVPUSH 12/15/20 20:31 4 mg ONETIME ONE Administration Ondansetron HCl 4 mg 12/15/20 20:31 12/15/20 20:33 Ondansetron 4 Mg/2 Ml Sdv IVPUSH 12/15/20 20:32 Not Given ONETIME ONE Departure - Departure Time of Disposition: 21:31 Disposition: Home, Self-Care 01 Condition: Good Clinical Impression: Comminuted fracture of right humerus Qualifiers: Encounter type: initial encounter Fracture type: closed Fracture alignment: displaced - Discharge Information Prescriptions: Hydrocodone/Acetaminophen [Hydrocodone-Acetamin 5-325 mg] 1 each PO Q6HR PRN #20 tab PRN Reason: Pain Ibuprofen 600 mg PO Q6HR PRN #30 tablet PRN Reason: Pain Ondansetron [Zofran ODT] 4 mg PO Q6H PRN #12 tab.dis PRN Reason: Nausea Instructions: Cast or Splint Care, Adult, [id number], Humerus Fracture Treated With Immobilization, [id number] Referrals: PCP,None [Primary Care Provider] - Additional Instructions: Your seen and evaluated in the ER today secondary to a fracture to your right humerus. Your fracture is comminuted and displaced and appears to be in the proximal to the mid right humerus. I have discussed the case with Dr. Brannon's service and they will contact you tomorrow for follow-up instructions. You have been placed in a splint and a sling to assist with pain and healing. We will send a prescription for Rudyard and ibuprofen help you with your pain as well as Zofran to help you with nausea that may result from the pain medicines. Please apply ice to the area of for the next 2 days. Please return to the ER if you start having any new or concerning symptoms such as tingling, weakness numbness or coldness to your hand. The following information is given to patients seen in the emergency department who are being discharged to home. This information is to outline your options for follow-up care. We provide all patients seen in our emergency department with a follow-up referral. The need for follow-up, as well as the timing and circumstances, are variable depending upon the specifics of your emergency department visit. If you don't have a primary care physician on staff, we will provide you with a referral. We always advise you to contact your personal physician following an emergency department visit to inform them of the circumstance of the visit and for follow-up with them and/or the need for any referrals to a consulting specialist. The emergency department will also refer you to a specialist when appropriate. This referral assures that you have the opportunity for follow-up care with a specialist. All of these measure are taken in an effort to provide you with optimal care, which includes your follow-up. Under all circumstances we always encourage you to contact your private physician who remains a resource for coordinating your care. When calling for follow-up care, please make the office aware that this follow-up is from your recent emergency room visit. If for any reason you are refused follow-up, please contact the [facility] Emergency Department at and asked to speak to the emergency department charge nurse. [facility] [address] [place] [id number] [facility] [address] [place] [id number] Sepsis Event Note (ED) - Evaluation Sepsis Screening Result: No Definite Risk - Focused Exam Vital Signs: Vital Signs Temp Pulse Resp BP Pulse Ox 12/15/20 19:10 97.3 F 67 18 157/65 H 99
== END 2020-12-15 22:20 | disposition home or self-care (01) ==
LOC: MW.ED 18:58
DX: S42.351A Displaced comminuted fracture of shaft of humerus, right arm, initial encounter for closed fracture (principal); S42.211A Unspecified displaced fracture of surgical neck of right humerus, initial encounter for closed fracture; I10 Essential (primary) hypertension; E11.9 Type 2 diabetes mellitus without complications; M19.90 Unspecified osteoarthritis, unspecified site; E66.9 Obesity, unspecified; Z68.38 Body mass index [BMI] 38.0-38.9, adult; Z87.891 Personal history of nicotine dependence; Z88.1 Allergy status to other antibiotic agents; Z88.5 Allergy status to narcotic agent; Z91.018 Allergy to other foods; W10.9XXA Fall (on) (from) unspecified stairs and steps, initial encounter
CPT/HCPCS: 73030; 73060; 96374; 96375; 96376; 99284; J2405; J3010

== ENCOUNTER 2021-06-18 13:08 | Emergency (ER) | payer MEDICARE, OTHER ==
[2021-06-18] MEDS ORDERED: Sodium Chloride 0.9% 1,000 ML IV ONE (13:15)
[2021-06-18] MEDS ORDERED: Sodium Chloride 0.9% 2.5 ML Syringe FLUSH PRN (13:15)
[2021-06-18] MEDS ORDERED: Sodium Chloride 0.9% 10 ML Syringe FLUSH PRN (13:15)
[2021-06-18] MEDS ORDERED: Acetaminophen 325 MG Tab PO ONE (13:16)
[2021-06-18 14:11] LABS: CARBON DIOXIDE,CO2 21.5 mmol/L (21.0-32.0); POTASSIUM,K 3.6 mmol/L (3.5-5.1)
== END 2021-06-18 14:55 | disposition home or self-care (01) ==
LOC: MW.ED 13:08
DX: S29.9XXA Unspecified injury of thorax, initial encounter (principal); S50.01XA Contusion of right elbow, initial encounter; Z88.5 Allergy status to narcotic agent; Z88.1 Allergy status to other antibiotic agents; Z91.018 Allergy to other foods; W01.198A Fall on same level from slipping, tripping and stumbling with subsequent striking against other object, initial encounter
CPT/HCPCS: 36415; 71101; 80053; 85025; 93005; 99284; A9270; J7030

== ENCOUNTER 2022-09-30 23:53 | Emergency (ER) | payer MEDICARE, OTHER ==
[2022-10-01 00:27] LABS: BASOPHILS PERCENT AUTO 0.4 % (0.0-1.5); EOSINOPHILS ABSOLUTE AUTO 0.3 K/uL (0.0-0.7); EOSINOPHILS PERCENT AUTO 3.4 % (0.0-7.0); HEMATOCRIT 36.2 % (36.0-46.0); HEMOGLOBIN 12.1 g/dL (12.0-16.0); LYMPHOCYTES ABSOLUTE AUTO 3.1 K/uL (0.6-2.4); LYMPHOCYTES PERCENT AUTO 36.7 % (16.0-40.0); MEAN CORPUSCULAR HEMOGLOBIN 32.5 pg (27.0-32.0); MEAN CORPUSCULAR HGB CONC 33.4 g/dL (31.0-37.0); MEAN CORPUSCULAR VOLUME 97.3 fL (80.0-98.0); MONOCYTES PERCENT AUTO 11.3 % (0.0-15.0); NEUTROPHILS ABSOLUTE AUTO 4.1 K/uL (1.4-5.7); NEUTROPHILS PERCENT AUTO 48.2 % (48.0-80.0); PLATELET COUNT,PLT 286 K/uL (150-400); RED BLOOD CELL COUNT 3.72 M/uL (4.30-5.90); WHITE BLOOD CELL COUNT,WBC 8.47 K/uL (4.0-11.0)
[2022-10-01] MEDS ORDERED: Labetalol 100 MG/20 ML MDV IVPUSH ONE (00:29)
[2022-10-01 00:57] LABS: A/G RATIO 0.9 (0.9-1.6); ALBUMIN 3.7 g/dL (3.4-5.0); BILIRUBIN TOTAL 0.2 mg/dL (0.2-1.0); CALCIUM 9.1 mg/dL (8.5-10.1); CARBON DIOXIDE,CO2 27.8 mmol/L (21.0-32.0); CREATININE 1.2 mg/dL (0.6-1.0); EST CRCL DRUG DOSING (CG) 34.42 mL/min; MAGNESIUM 2.1 mg/dL (1.8-2.4); POTASSIUM,K 4.3 mmol/L (3.5-5.1)
[2022-10-01 01:14] LABS: APPEARANCE,URINE HAZY; BILIRUBIN,URINE NEGATIVE (NEGATIVE); COLOR,URINE YELLOW; GLUCOSE,URINE NEGATIVE (NEGATIVE); KETONES,URINE NEGATIVE (NEGATIVE); LEUKOCYTE ESTERASE,URINE SMALL (NEGATIVE); NITRITE,URINE NEGATIVE (NEGATIVE); OCCULT BLOOD,URINE NEGATIVE (NEGATIVE); PH,URINE 6.5 (5.0-8.0); PROTEIN,URINE 30 mg/dL (NEGATIVE); UROBILINOGEN,URINE 0.2 EU/dL (<2.0)
[2022-10-01 01:19] LABS: BACTERIA,URINE FEW (NEGATIVE); EPITHELIAL CELLS,URINE FEW (NONE-FEW); RBC,URINE 0-3 (0-2/HPF)
== END 2022-10-01 02:30 | disposition home or self-care (01) ==
LOC: MW.ED 23:53
DX: I10 Essential (primary) hypertension (principal); N39.0 Urinary tract infection, site not specified; G93.9 Disorder of brain, unspecified; Z88.5 Allergy status to narcotic agent; Z88.1 Allergy status to other antibiotic agents; Z91.018 Allergy to other foods
CPT/HCPCS: 36415; 70450; 80053; 81001; 83735; 84484; 85025; 93005; 96374; 99284; J3490; 93010

== ENCOUNTER 2023-06-06 15:26 | Emergency (ER) | payer MEDICARE, OTHER ==
[2023-06-06] MEDS: Lidocaine 4% 1 each Patch TOP ONE (15:59)
[2023-06-06] MEDS: Acetaminophen 325 MG Tab PO ONE (16:00)
== END 2023-06-06 16:14 | disposition home or self-care (01) ==
LOC: MW.ED 15:26
DX: M54.50 Low back pain, unspecified (principal); I10 Essential (primary) hypertension; Z88.1 Allergy status to other antibiotic agents; Z88.5 Allergy status to narcotic agent; Z91.018 Allergy to other foods; Z79.899 Other long term (current) drug therapy; Z79.82 Long term (current) use of aspirin; Z79.84 Long term (current) use of oral hypoglycemic drugs; Z90.710 Acquired absence of both cervix and uterus; Z75.8 Other problems related to medical facilities and other health care; W19.XXXA Unspecified fall, initial encounter; Y92.009 Unspecified place in unspecified non-institutional (private) residence as the place of occurrence of the external cause
CPT/HCPCS: 99283; A9270